=== PATIENT | female | born 1960 | race Caucasian/White ===

== ENCOUNTER → 2022-03-21 15:52 | Outpatient (CLI) | payer OTHER, SELFPAY ==
[2022-03-21 17:31] LABS: Basophils # 0.1 K/mm3 (0-0.2); Basophils % 2.2 % (0.1-2.0); Eosinophils # 0.2 K/mm3 (0.0-0.4); Eosinophils % 4.7 % (0.1-12.0); Hemoglobin 14.6 g/dL (12.2-16.2); Lymphocytes # 1.6 K/mm3 (0.7-4.5); Lymphocytes % 36.6 % (10-50); Mean Corpuscular HGB Conc 33.2 g/dL (31.8-35.4); Mean Corpuscular Hemoglobin 31.9 pg (27.0-31.2); Mean Corpuscular Volume 96.1 fl (81-99); Mean Platelet Volume 9.6 fl (7.4-10.4); Monocytes # 0.4 K/mm3 (0.1-1.0); Monocytes % 9.5 % (1.7-9.3); Platelet Count 273 K/mm3 (142-424); Red Blood Count 4.58 M/mm3 (4.20-5.40); Red Cell Distribution Width 13.8 % (11.5-17.5); White Blood Count 4.2 K/mm3 (4.8-10.8)
[2022-03-21 17:33] LABS: Alanine Aminotransferase 25 U/L (12-78); Albumin Level 4.2 g/dl (3.5-5.0); Albumin/Globulin Ratio 1.5 (1.1-1.8); Alkaline Phosphatase 92 U/L (38-126); Anion Gap 13.9 mEq/L (5-15); Aspartate Amino Transferase 29 U/L (14-36); Blood Urea Nitrogen 13 mg/dl (7-17); Calcium 9.4 mg/dl (8.4-10.2); Carbon Dioxide 32 mmol/L (22.0-30.0); Chloride 100 mmol/L (98-107); Chol/HDL Ratio 3.8 (1-3.5); Cholesterol 218 mg/dl (140-200); Estimated Glomerular Filt Rate 101 ml/min (>60); GFR (African American) 122 ML/MIN (>60); Globulin 2.8 g/dL (1.3-3.2); Glucose 114 mg/dl (74-100); HDL Cholesterol 58 mg/dl (40-60); Potassium 4.9 mmoL/L (3.5-5.1); Sodium 141 mmol/L (136-145); Triglycerides 125 mg/dl (30-150); VLDL Cholesterol 25 mg/dL (0-40)
[2022-03-21 17:43] LABS: Bilirubin,Total 0.1 mg/dl (0.2-1.3)
[2022-03-21 17:44] LABS: Direct LDL Cholesterol 125.75 mg/dL (100-129)
[2022-03-21 17:50] LABS: Free T4 (Free Thyroxine) 1.36 ng/dl (0.78-2.19)
[2022-03-21 17:51] LABS: 25-OH Vitamin D, Total 71.9 ng/mL (30-100)
[2022-03-21 18:04] LABS: Thyroid Stimulating Hormone 0.61 uIU/mL (0.465-4.68)
== END ==
PROVIDERS: PCP Emergency Medicine; Visit Provider Emergency Medicine
DX: J44.9 Chronic obstructive pulmonary disease, unspecified (principal); E55.9 Vitamin D deficiency, unspecified; R53.83 Other fatigue
CPT/HCPCS: 80053; 80061; 82306; 84439; 84443; 85025

== ENCOUNTER → 2022-04-06 14:26 | Outpatient (CLI) | payer OTHER, SELFPAY ==
--- NOTE | 2022-04-06 14:30 | CT_ITS ---
FINAL REPORT CLINICAL HISTORY: lung cancer screening former smoker, quit 3 years ago. 1-1/2 ppd x 40 years copd exposed to 2nd hand smoke FINDINGS: CT CHEST SCREENING CTDI vol (mGy): 2.90 DLP (mGy-cm): 99.51 Axial images were obtained from the lung apex to the mid abdomen by computed tomography. Low-dose protocol was utilized. FINDINGS: CHEST: There is no axillary adenopathy. There is no hilar or mediastinal adenopathy. The heart is proper size. There are moderate vascular calcifications. There is no pericardial or pleural effusion. Limited images of the upper abdomen demonstrate several low-attenuation masses in the liver, the largest in the left liver dome measuring 11 mm, nonspecific.. Lung window images demonstrate severe changes of emphysema. There is a calcified mass in the right upper lobe consistent with a large granuloma. There are multiple other calcified granulomas noted. There is a soft tissue opacity in the posterior left upper lobe measuring up to 28 mm. There is a nodule in the left lower lobe measuring 12 mm seen on image 25. There is a 3 mm nodule in the lateral left upper lobe seen on image 28. IMPRESSION: Posterior left upper lobe soft tissue opacity measuring up to 28 mm. Other nodules as detailed above. Lung RADS category 4B-S*. Recommend PET CT. S* - Liver masses as above. Recommend follow-up liver mass protocol CT or liver MRI. Reviewed, Interpreted and Dictated by Gerald Amador III, MD Transcribed by Chaaprrita Bernstein Authenticated and [facility]
== END ==
PROVIDERS: PCP Emergency Medicine; Visit Provider Emergency Medicine
DX: Z87.891 Personal history of nicotine dependence (principal); Z12.2 Encounter for screening for malignant neoplasm of respiratory organs
CPT/HCPCS: 71271

== ENCOUNTER → 2022-07-16 09:57 | Outpatient (CLI) | payer OTHER, SELFPAY ==
--- NOTE | 2022-07-16 12:05 | PC.NURSE ---
PFT and 6 Minute Walk Test completed without incident. Pt given albuterol 0.083% per protocol, pt tolerated tx well. During walk Pt placed on 2 LPM NC to complete test.
== END ==
PROVIDERS: PCP Emergency Medicine; Visit Provider Internal Medicine Pulmonary Disease
DX: R06.09 Other forms of dyspnea (principal)
CPT/HCPCS: 94060; 94618; 94726; 94729

== ENCOUNTER → 2023-02-07 13:32 | Outpatient (CLI) | payer MEDICARE, SELFPAY ==
--- NOTE | 2023-02-07 13:32 | CT_ITS ---
FINAL REPORT TECHNIQUE: Axial images were obtained from the lung apex to the mid abdomen by computed tomography. Coronal reformatted images were obtained. This study was performed with techniques to keep radiation doses as low as reasonably achievable, (ALARA). Individualized dose reduction techniques using automated exposure control or adjustment of mA and/or kV according to the patient''s size were employed. CLINICAL HISTORY: LUNG NODULE F/U COMPARISON: CT low-dose 04/06/2022 FINDINGS: There is no axillary adenopathy. There is no hilar or mediastinal mass or adenopathy. Heart size is normal. There are moderate coronary artery calcifications. There is no pericardial or pleural effusion. There is severe emphysema. There is a calcified mass in the right upper lobe which is stable. In addition, the soft tissue opacity posterior left upper lobe measuring up to approximately 40 mm is stable. Stable left lower lobe nodule measuring 12 mm. Medial right lower lobe opacities are new, favor inflammatory. Limited images of the upper abdomen demonstrate multiple hepatic masses which are stable. There are moderate vascular calcifications. IMPRESSION: Stable nodules and opacities from prior exam. New opacities right lower lobe are likely inflammatory. Could be further evaluated with chest CT in 3-6 months. Stable nonspecific liver masses. Reviewed, Interpreted and Dictated by Gerald Amador III, MD Transcribed by Chaparrita Bernstein Authenticated and [facility]
== END ==
PROVIDERS: PCP Emergency Medicine; Visit Provider Internal Medicine Pulmonary Disease
DX: R91.8 Other nonspecific abnormal finding of lung field (principal)
CPT/HCPCS: 71250

== ENCOUNTER → 2023-08-09 15:04 | Outpatient (CLI) | payer MEDICARE, SELFPAY ==
--- NOTE | 2023-08-09 15:04 | CT_ITS ---
FINAL REPORT TECHNIQUE: Axial images were obtained from the lung apex to the mid abdomen by computed tomography. Coronal reformatted images were obtained. This study was performed with techniques to keep radiation doses as low as reasonably achievable, (ALARA). Individualized dose reduction techniques using automated exposure control or adjustment of mA and/or kV according to the patient''s size were employed. CLINICAL HISTORY: Follow-up lung nodule/opacity COMPARISON: CT low-dose 02/07/2023 FINDINGS: There is no axillary adenopathy. There is no hilar or mediastinal adenopathy. Heart size is normal. There is no pericardial or pleural effusion. There is severe emphysema. There is a stable calcified right upper lobe mass. Left upper lobe soft tissue opacity measuring up to 40 mm is visually stable. There has been interval worsening of focal soft tissue opacity in the medial right midthorax now measuring approximally 32 x 17 mm, was 14 x 13 mm. There has been interval resolution of lateral right lower lobe nodular opacity. There is a new 13 mm medial right lower lobe nodular opacity. Left lower lobe nodule measures 11 mm, was 11 mm, seen on image 29. There is a new 3 mm nodule lateral to it. There is a new posterior left lower lobe nodular opacity measuring up to 10 mm. Limited images of the upper abdomen demonstrate multiple low-attenuation hepatic foci which are stable. Gallstones are noted. IMPRESSION: Significant enlargement of soft tissue opacity posterior medial right midthorax, neoplastic or inflammatory. Recommend PET-CT and possible CT-guided biopsy. New bilateral lower lobe nodular opacities of uncertain etiology, inflammatory or neoplastic. Stable other left lung opacities. Reviewed, Interpreted and Dictated by Gerald Amador III, MD Transcribed by Chaparrita Bernstein Authenticated and [facility]
== END ==
PROVIDERS: PCP Emergency Medicine; Visit Provider Internal Medicine Pulmonary Disease
DX: R91.8 Other nonspecific abnormal finding of lung field (principal)
CPT/HCPCS: 71250

== ENCOUNTER → 2023-08-15 15:33 | Outpatient (CLI) | payer MEDICARE, SELFPAY ==
[2023-08-23 00:04] LABS: Aspergillus flavus Negative (Neg:<1:1); Aspergillus fumigatus Negative (Neg:<1:1); Aspergillus niger Negative (Neg:<1:1); Blastomyces Antibody Negative (Neg:<1:1); Histoplasma Antibody Quant Negative (Neg:<1:1)
[2023-08-26 16:56] LABS: Alpha-1-Antitrypsin 102 mg/dL (101-187); Phenotype (PI) MZ (.)
== END ==
PROVIDERS: PCP Emergency Medicine; Visit Provider Internal Medicine Pulmonary Disease
DX: J84.10 Pulmonary fibrosis, unspecified (principal); R91.1 Solitary pulmonary nodule; J44.9 Chronic obstructive pulmonary disease, unspecified
CPT/HCPCS: 36415; 82103; 82104; 86606; 86612; 86698

== ENCOUNTER → 2023-09-26 06:52 | Outpatient (CLI) | payer MEDICARE, SELFPAY ==
[2023-09-26 19:01] LABS: Alanine Aminotransferase 23 U/L (12-78); Albumin Level 4.4 g/dl (3.5-5.0); Albumin/Globulin Ratio 1.4 (1.1-1.8); Alkaline Phosphatase 101 U/L (38-126); Anion Gap 14.3 mEq/L (5-15); Aspartate Amino Transferase 30 U/L (14-36); Bilirubin,Total 0.5 mg/dl (0.2-1.3); Blood Urea Nitrogen 14 mg/dl (7-17); Carbon Dioxide 26 mmol/L (22.0-30.0); Chloride 101 mmol/L (98-107); Chol/HDL Ratio 4.2 (1-3.5); Cholesterol 210 mg/dl (140-200); Estimated Glomerular Filt Rate 72 ml/min (>60); GFR (African American) 87 ML/MIN (>60); Globulin 3.2 g/dL (1.3-3.2); Glucose 89 mg/dl (74-100); HDL Cholesterol 50 mg/dl (40-60); Potassium 4.3 mmoL/L (3.5-5.1); Sodium 137 mmol/L (136-145); Total Protein,Serum 7.6 g/dl (6.3-8.2); Triglycerides 98 mg/dl (30-150); VLDL Cholesterol 20 mg/dL (0-40)
[2023-09-26 19:05] LABS: Basophils % 0.5 % (0.1-2.0); Eosinophils # 0.2 K/mm3 (0.0-0.4); Eosinophils % 3.6 % (0.1-12.0); Hematocrit 43.5 % (37.0-47.0); Hemoglobin 14.2 g/dL (12.2-16.2); Lymphocytes # 1.4 K/mm3 (0.7-4.5); Lymphocytes % 28.6 % (10-50); Mean Corpuscular HGB Conc 32.6 g/dL (31.8-35.4); Mean Corpuscular Volume 95.1 fl (81-99); Mean Platelet Volume 9.3 fl (7.4-10.4); Monocytes # 0.4 K/mm3 (0.1-1.0); Neutrophils # 2.9 K/mm3 (1.8-7.8); Neutrophils % 59.4 % (37.0-80.0); Platelet Count 291 K/mm3 (142-424); Red Blood Count 4.58 M/mm3 (4.20-5.40); Red Cell Distribution Width 12.8 % (11.5-17.5); White Blood Count 4.9 K/mm3 (4.8-10.8)
[2023-09-26 19:12] LABS: Direct LDL Cholesterol 131.49 mg/dL (100-129)
[2023-09-26 19:31] LABS: Thyroid Stimulating Hormone 0.51 uIU/mL (0.465-4.68)
== END ==
PROVIDERS: PCP Physician Assistant; Visit Provider Physician Assistant
DX: J44.9 Chronic obstructive pulmonary disease, unspecified (principal); E66.3 Overweight; R06.09 Other forms of dyspnea; J43.2 Centrilobular emphysema; Z68.30 Body mass index [BMI] 30.0-30.9, adult
CPT/HCPCS: 80053; 80061; 84443; 85025

== ENCOUNTER 2023-11-04 15:55 | Outpatient (CLI) | payer MEDICARE, SELFPAY ==
--- NOTE | 2023-11-04 15:55 | MM_ITS ---
PROCEDURE INFORMATION: Exam: MG Bilateral Screening 3D Mammography Exam date and time: 11/04/2023 3:54 PM Age: 63 years old Clinical indication: Screening examination. Her sister had breast cancer at age 46. TECHNIQUE: Imaging protocol: Bilateral Screening tomosynthesis and 2D mammography including computer-aided detection (CAD) when performed. The technologist's notes document that best images possible were obtained to the patient's abilities. COMPARISON: No comparison provided.If prior mammograms are provided, I am happy to add an addendum. FINDINGS: MAMMOGRAPHY: Breast composition: There are scattered areas of fibroglandular density. Mass: No suspicious mass. Architectural distortion: None. Calcifications: Grouping of calcifications in the left upper outer quadrant, posterior 3rd. Asymmetric density: None. Skin thickening: None. Axillary adenopathy: None. IMPRESSION: Comparison to prior mammogram be most helpful. This is not provided within 2 weeks, patient will be recalled for left diagnostic mammography with magnification views in CC and true lateral for further evaluation of left breast calcifications. ASSESSMENT: BI-RADS Category 0: Incomplete- Need Additional Imaging Evaluation and/or Prior Mammograms for Comparison
== END 2023-11-04 23:59 ==
LOC: RAD 15:55
PROVIDERS: PCP Physician Assistant; Visit Provider Physician Assistant
DX: Z12.31 Encounter for screening mammogram for malignant neoplasm of breast (principal)
CPT/HCPCS: 77063; 77067

== ENCOUNTER 2023-11-14 13:48 | Outpatient (CLI) | payer MEDICARE, SELFPAY ==
--- NOTE | 2023-11-14 13:48 | MM_ITS ---
PROCEDURE INFORMATION: Exam: MG Left Diagnostic Breast Tomosynthesis Exam date and time: 11/14/2023 1:57 PM Age: 63 years old Clinical indication: Patient recalled on the basis of a screening mammogram for further evaluation; Left breast; calcifications TECHNIQUE: Imaging protocol: Left Diagnostic tomosynthesis and 2D mammography including computer-aided detection (CAD) when performed. Unilateral or bilateral exam. COMPARISON: 1. MG MM DIG SCREENING MAMM BI W/CAD 11/04/2023 3:54 PM [address] PT PET CT Skull Base to Midthigh 05/03/2022 11:37 AM FINDINGS: MAMMOGRAPHY: Digital diagnostic magnification views of the left upper outer quadrant demonstrate benign dystrophic calcifications. IMPRESSION: No mammographic evidence of malignancy. Benign dystrophic calcifications in the left breast.Annual bilateral mammographic screening is recommended unless otherwise clinically indicated. ASSESSMENT: BI-RADS Category 2: Benign
== END 2023-11-14 23:59 ==
LOC: RAD 13:48
PROVIDERS: PCP Physician Assistant; Visit Provider Physician Assistant
DX: R92.8 Other abnormal and inconclusive findings on diagnostic imaging of breast (principal)
CPT/HCPCS: 77061; 77065; G0279

== ENCOUNTER 2023-12-03 11:25 | Day surgery (SDC) | payer MEDICARE, SELFPAY ==
[2023-12-02 10:06] VITALS: BMI 29.8
[2023-12-03] MEDS: LACTATED RINGERS 1000ML 1,000 ML 100 ML IV (11:43)
[2023-12-03 11:46] VITALS: BP 182/97; PULSE 115; RESP 20; TEMP 36.3; O2SAT 91
--- NOTE | 2023-12-03 11:58 | P.PNANES_ITS ---
[facility] Disclaimer: The information contained in this section may have been updated after the patient was seen, as this information can be updated by other users. Medical History COPD (chronic obstructive pulmonary disease) COPD mixed type Dyspnea on exertion Hilar lymphadenopathy Lung nodule Mediastinal lymphadenopathy Migraine O2 dependent Pulmonary emphysema Surgical History History of lung biopsy No significant past surgical history Family History Other Cancer Coronary artery disease Diabetes Heart attack Hypertension Stroke Social History Smoking Status: Former smoker alcohol intake: never substance use type: denies use current occupational status: employed Travel in the last 8 weeks: None [facility] Anesthesia Checklist Patient Identification Patient Identification: Arm Band and Verbal (Name & ) Structural Data Admitted From: Home Planned Operative Procedure/s: Colonoscopy Consent for Planned Operative Procedure(s) Verified: Yes NPO Status Verified Time NPO: 00:00 Additional verifications Anesthesia Reactions: No Airway Assessment Mallampati Score:: Class III C-Spine Mobility Assessed: Yes TMJ Mobility Assessed: Yes Dentition: Edentulous Neurological Assessment Level of Consciousness: Awake Hx Seizures: No Numbness or tingling in extremities: No Anesthesia Plan Anesthesia Risk discussed: Yes Anesthesia Plan: Verified ASA Class: III Anesthesia Type: MAC
[2023-12-03 12:07] VITALS: O2SAT 91
[2023-12-03 12:50] VITALS: BP 111/56; PULSE 88; RESP 18; TEMP 36.4; O2SAT 99
--- NOTE | 2023-12-03 12:51 | HMH.SCOPE ---
Procedure: Date: 12/03/23 Patient Date of :: 1960 Procedure Performed:: Colonoscopy with polypectomy Indications:: Positive Cologuard Performing Provider:: Bhavin Castano MD Referring Provider:: . Sedation:: Monitored anesthesia care Procedure:: After informed consent was obtained the patient was taken to the endoscopy suite. Sedation ensued after the patient was transferred to the left lateral decubitus position. Pulse, blood pressure, and oxygen saturation were monitored throughout the procedure. Digital rectal exam revealed no significant abnormality. The colonoscope was placed in position. The entire colon was evaluated. The colonoscope was carefully removed and the patient was transferred to recovery in stable condition. Please see findings and specimens below for detail. Findings:: Bowel preparation moderate Profound spasticity/lack of relaxation Adjacent right colon polyps (see specimens) Tattoo placed at adjacent right colon polyp site secondary to difficulty in visualization (spasticity/lack of relaxation) Specimens:: Adjacent right colon polyps (cold snare, cold biopsy forceps, and tattoo) Recommendations:: Timing of repeat colonoscopy is pending pathology will likely be around 6-12 months secondary to profound spasticity/lack of relaxation, positive Cologuard, and need for short-term repeat evaluation in/around tattoo site. Consider barium enema in near future secondary to positive Cologuard without mass lesion or large/complex polyp Complications:: No immediate Estimated blood obtained (mL): 1 Colonoscopy Component Colonoscopy Component Was a colonoscopy performed during today's procedure?: Yes Recommended follow up colonoscopy of at least 10 years?: No If no, follow up colonoscopy recommended in ___ years?: (See above) Reason for not recommending >/= 10 yr follow-up interval?: (See above)
[2023-12-03 13:00] VITALS: BP 156/76; PULSE 85; RESP 18; O2SAT 99
[2023-12-03 13:10] VITALS: BP 131/65; PULSE 87; RESP 18; O2SAT 98
== END 2023-12-03 13:10 | disposition home or self-care (01) ==
PROVIDERS: PCP Physician Assistant; Visit Provider Surgery
PROC: 0DJD8ZZ Inspection of Lower Intestinal Tract, Via Natural or Artificial Opening Endoscopic (ICD-10-PCS; CPT 45380; principal; 2023-12-03 12:30)
DX: R19.5 Other fecal abnormalities (principal); D12.2 Benign neoplasm of ascending colon
CPT/HCPCS: 45380; 88305; J1610; J2704

== ENCOUNTER 2023-12-23 06:42 | Outpatient (CLI) | payer MEDICARE, SELFPAY ==
--- NOTE | 2023-12-23 06:46 | CT_ITS ---
FINAL REPORT TECHNIQUE: Thin section axial images were obtained from the lung apices through the upper abdomen without contrast. This study was performed with techniques to keep radiation doses as low as reasonably achievable (ALARA). Individualized dose reduction techniques using automated exposure control or adjustment of mA and/or kV according to the patient's size were employed. CLINICAL HISTORY: lung nodule COMPARISON: 08/09/2023 FINDINGS: There is no mediastinal, right hilar, or axillary lymphadenopathy. There is likely new posterior left hilar lymphadenopathy. No pleural or pericardial effusion. There is emphysema and evidence of prior granulomatous disease. There is a partially calcified, irregular opacity in the right upper lobe and irregular left upper lobe airspace disease which is unchanged. Nodular opacity in the medial right lower lobe has improved now measuring 16 mm, previously measured 26 mm. However, there is new cavitary airspace disease in the superior segment of the left lower lobe most consistent with pneumonia. Limited, unenhanced evaluation of the upper abdomen demonstrates small hypodense liver lesions which are likely cysts. There are gallstones in the gallbladder. Left adrenal nodule is unchanged. There is no acute osseous abnormality. IMPRESSION: Improved medial right lower lobe rounded opacity. New cavitary left lower lobe pneumonia. Recommend follow-up CT to ensure resolution. Reviewed, Interpreted and Dictated by Martha Kearns MD Transcribed by Samantha Dow Authenticated and [facility]
== END 2023-12-23 23:59 ==
LOC: RAD 06:44
PROVIDERS: PCP Physician Assistant; Visit Provider Internal Medicine Pulmonary Disease
DX: R91.8 Other nonspecific abnormal finding of lung field (principal)
CPT/HCPCS: 71250

== ENCOUNTER 2024-01-27 16:13 | Outpatient (CLI) | payer MEDICARE, SELFPAY ==
--- NOTE | 2024-01-27 16:23 | XR_ITS ---
PROCEDURE INFORMATION: Exam: XR Chest Exam date and time: 01/27/2024 4:29 PM Age: 63 years old Clinical indication: Other: Lll pnm; Additional info: Lll pnm. Copd, SOA, former smoker x 40 yrs TECHNIQUE: Imaging protocol: Radiologic exam of the chest. Views: 2 views. COMPARISON: CT CHEST WO CON 12/23/2023 6:44 AM FINDINGS: Lungs: Extensive chronic parenchymal changes with areas of scarring and calcification, stable from prior. There is mild coarsening of the bronchovascular markings with hyperinflation suggesting underlying obstructive airways disease. Improved aeration of the left lower lobe. Pleural spaces: No large effusion or pneumothorax. Heart/Mediastinum: Stable cardiac and mediastinal contours. Bones/joints: No evidence of acute osseous abnormalities within the visualized portions of the thoracic spine and ribs. Osseous structures appear appropriate for patient age. There are degenerative changes of the thoracic spine. IMPRESSION: Extensive chronic changes are stable. Improved aeration of the left lower lobe.
[2024-01-28 08:58] LABS: Alpha-1-Antitrypsin 99 mg/dL (101-187)
[2024-02-01 10:41] LABS: Fungitell(Beta D-Glucan) Serum SCANNED IMAGE
== END 2024-01-27 23:59 ==
LOC: LAB 16:14
PROVIDERS: PCP Physician Assistant; Visit Provider Internal Medicine Pulmonary Disease
DX: B44.9 Aspergillosis, unspecified (principal); J44.9 Chronic obstructive pulmonary disease, unspecified; R06.02 Shortness of breath
CPT/HCPCS: 36415; 71046; 82103; 87449

== ENCOUNTER 2024-01-27 22:00 | Outpatient (CLI) | payer MEDICARE, SELFPAY | END 2024-01-27 23:59 | LOC: LAB.DROPOF 01-28 10:01 | PROVIDERS: PCP Physician Assistant; Visit Provider Internal Medicine Pulmonary Disease | DX: R06.09 Other forms of dyspnea (principal); R05.9 Cough, unspecified; R09.89 Other specified symptoms and signs involving the circulatory and respiratory systems | CPT/HCPCS: 36415; 71046; 82103; 87070; 87205; 87449 ==

== ENCOUNTER 2024-01-28 09:55 | Outpatient (CLI) | payer MEDICARE, SELFPAY | END 2024-01-28 23:59 | LOC: LAB.DROPOF 09:56 | PROVIDERS: PCP Physician Assistant; Visit Provider Internal Medicine Pulmonary Disease | DX: J18.9 Pneumonia, unspecified organism (principal); B35.9 Dermatophytosis, unspecified; R05.9 Cough, unspecified; B44.9 Aspergillosis, unspecified | CPT/HCPCS: 87220 ==

== ENCOUNTER 2024-03-11 07:46 | Outpatient (CLI) | payer MEDICARE, SELFPAY ==
--- NOTE | 2024-03-11 07:46 | FL_ITS ---
FINAL REPORT CLINICAL HISTORY: .POSITIVE COLOGUARD 2:18 FLUORO TIME 4624.31 DAP FINDINGS: BARIUM ENEMA HISTORY: Incomplete colonoscopy. Positive Cologuard test. PROCEDURE: Single-contrast barium was introduced by gravity drip. Spot and overhead films were obtained. Number of images: 22 Fluoro time: 2 minutes 18 seconds DAP: 4624.31 uGym2. FINDINGS: Quality Control Coordinator film is unremarkable. Retained stool limits mucosal detail. No constricting or obstructing lesions are identified to the level of the cecum. The colon is markedly redundant. IMPRESSION: No constricting or obstructing lesions to the level the cecum. Films reviewed , interpreted and dictated by Dr. Amador. Transcribed by Francisco Fisher PA-C. Reviewed, Interpreted and Dictated by Gerald Amador III, MD Transcribed by MARVIN Vazquez Authenticated and [facility]
[2024-03-11] MEDS: BARIUM SULFATE(E-Z-AC);750ML BOTTLE 1500 ML PO (08:28)
== END 2024-03-11 23:59 | disposition home or self-care (01) ==
LOC: RAD 07:46
PROVIDERS: PCP Physician Assistant; Visit Provider Surgery
DX: R19.5 Other fecal abnormalities (principal)
CPT/HCPCS: 74270

== ENCOUNTER 2024-03-26 14:23 | Outpatient (CLI) | payer MEDICARE, SELFPAY ==
--- NOTE | 2024-03-26 14:29 | CT_ITS ---
FINAL REPORT TECHNIQUE: Axial images were obtained through the chest without contrast. CLINICAL HISTORY: 3 month follow-up COMPARISON: 12/23/2023 FINDINGS: There is no significant mediastinal or hilar adenopathy. The heart size is normal. There are moderate vascular calcifications of the aortic arch. There is a densely calcified focus in the right upper lobe measuring 2.9 cm in greatest dimension. This is stable compared to the prior exam. There are advanced changes of centrilobular emphysema. Scarring in the posterior aspect of the left upper lobe seen on image 24 of series 2 is stable compared to the prior exam. An ovoid nodular focus in the medial right lower lobe measures 13 mm and appears similar to the previous exam. This is best seen on image 31 of series 2. The cavitary focus noted previously in the left lower lobe is no longer seen. However, there is an ovoid solid mass at this location measuring 3.5 x 2.5 cm as seen on image 35 of series 2. IMPRESSION: Stable nodule in the medial right lower lobe. Cavitary mass in the left lower lobe has decreased in size and is now completely solid measuring 3.5 x 2.5 cm. This may be postinflammatory. Either short interval follow-up chest CT or PET/CT is recommended. Reviewed, Interpreted and Dictated by Rakesh Pike MD Transcribed by Annette Li Authenticated and [facility]
== END 2024-03-26 23:59 | disposition home or self-care (01) ==
LOC: RAD 14:26
PROVIDERS: PCP Physician Assistant; Visit Provider Internal Medicine Pulmonary Disease
DX: R91.8 Other nonspecific abnormal finding of lung field (principal)
CPT/HCPCS: 71250

== ENCOUNTER 2024-06-26 10:55 | Outpatient (CLI) | payer MEDICARE, SELFPAY ==
--- NOTE | 2024-06-26 10:56 | CT_ITS ---
FINAL REPORT CLINICAL HISTORY: 3-month follow-up lung nodule FINDINGS: CT CHEST WITHOUT CONTRAST TECHNIQUE: Axial images through the chest were performed by computed tomography without contrast. This study was performed with techniques to keep radiation doses as low as reasonably achievable, (ALARA). Individualized dose reduction techniques using automated exposure control or adjustment of mA and/or kV according to the patient's size were employed. FINDINGS: There is no axillary adenopathy. There is no hilar or mediastinal adenopathy. There is dense vascular calcification of the aortic arch. The heart size is normal. There is no pericardial or pleural effusion. There are advanced changes of centrilobular emphysema. A calcified spiculated mass in the medial right upper lobe is stable. Linear scarring in the posterior left upper lobe is stable. A density in the posterior left lower lobe measures 3.2 x 2.0 cm which is slightly smaller than previous probably related to slowly resolving postinflammatory focus. Limited images of the upper abdomen demonstrate calcified granulomas in the liver and spleen. There are gallstones in the gallbladder. IMPRESSION: No acute process. Reviewed, Interpreted and Dictated by Rakesh Pike MD Transcribed by Annette Li Authenticated and . [facility]
== END 2024-06-26 23:59 | disposition home or self-care (01) ==
LOC: RAD 10:56
PROVIDERS: PCP Physician Assistant; Visit Provider Internal Medicine Pulmonary Disease
DX: R91.8 Other nonspecific abnormal finding of lung field (principal)
CPT/HCPCS: 71250

== ENCOUNTER 2024-09-28 14:44 | Outpatient (CLI) | payer MEDICARE, SELFPAY ==
--- NOTE | 2024-09-28 14:45 | CT_ITS ---
FINAL REPORT TECHNIQUE: Axial CT images were performed from the lung apices through the upper abdomen. Coronal and sagittal reformats were submitted. This study was performed with techniques to keep radiation doses as low as reasonably achievable (ALARA). Individualized dose reduction techniques using automated exposure control or adjustment of mA and/or kV according to the patient's size were employed. CLINICAL HISTORY: 3 mth F/U COMPARISON: 06/26/2024 FINDINGS: There is no axillary adenopathy. Small mediastinal nodes are again noted. Heart size is normal. Moderate to severe coronary artery calcifications are present. There is no pericardial or pleural effusion. Severe changes of emphysema are noted, as well as moderate scar. There is a medial right upper lobe nodule measuring 25 mm in size, partially calcified, stable. There is a partially calcified posterior left upper lobe soft tissue opacity, also stable, likely scar. There is a left lower lobe mass, which measures 38 x 14 mm in size, was previously 38 x 20 mm in size, and visually decreased in size compared to the prior exam. There are several small adjacent nodules which are stable. There are multiple calcified granulomas present. There is no evidence of new mass or nodule. In the upper abdomen, there are multiple small presumed hepatic cysts, visually stable. IMPRESSION: Multiple nodules as described above, some partially calcified, either stable or smaller in size when compared to the prior exam of May 2024. No new mass or nodule is identified. Moderate to severe coronary artery calcifications. Severe changes of emphysema and moderate scarring. Reviewed, Interpreted and Dictated by Gerald Amador III, MD Transcribed by Sabi Davis Authenticated and [facility]
== END 2024-09-28 23:59 | disposition home or self-care (01) ==
LOC: RAD 14:45
PROVIDERS: PCP Physician Assistant; Visit Provider Internal Medicine Pulmonary Disease
DX: R91.8 Other nonspecific abnormal finding of lung field (principal)
CPT/HCPCS: 71250

== ENCOUNTER 2024-10-12 14:00 | Outpatient (CLI) | payer MEDICARE, SELFPAY ==
[2024-10-12 18:39] LABS: Basophils % 0.8 % (0.1-2.0); Eosinophils # 0.1 K/mm3 (0.0-0.4); Eosinophils % 3.1 % (0.1-12.0); Hematocrit 44.4 % (37.0-47.0); Hemoglobin 14.6 g/dL (12.2-16.2); Lymphocytes # 0.9 K/mm3 (0.7-4.5); Lymphocytes % 23.4 % (10-50); Mean Corpuscular HGB Conc 32.9 g/dL (31.8-35.4); Mean Corpuscular Hemoglobin 31.1 pg (27.0-31.2); Mean Corpuscular Volume 94.6 fl (81-99); Mean Platelet Volume 8.5 fl (7.4-10.4); Monocytes # 0.3 K/mm3 (0.1-1.0); Monocytes % 7.3 % (1.7-9.3); Neutrophils # 2.6 K/mm3 (1.8-7.8); Neutrophils % 65.4 % (37.0-80.0); Platelet Count 250 K/mm3 (142-424); Red Blood Count 4.69 M/mm3 (4.20-5.40); Red Cell Distribution Width 13.2 % (11.5-17.5)
[2024-10-12 18:59] LABS: Creatinine,Urine Random 43 mg/dL (Not Estab.)
[2024-10-12 19:02] LABS: Microalbumin < 6.000 mg/L (0-16.7)
[2024-10-12 19:05] LABS: Chloride 103 mmol/L (98-107)
[2024-10-12 19:06] LABS: Albumin Level 4.4 g/dl (3.5-5.0); Potassium 4.4 mmoL/L (3.5-5.1); Sodium 132 mmol/L (136-145)
[2024-10-12 19:08] LABS: Alanine Aminotransferase 26 U/L (12-78); Anion Gap 11.4 mEq/L (5-15); Aspartate Amino Transferase 37 U/L (14-36); Blood Urea Nitrogen 13 mg/dl (7-17); Carbon Dioxide 22 mmol/L (22.0-30.0); Estimated Glomerular Filt Rate 72 ml/min (>60); GFR (African American) 87 ML/MIN (>60)
[2024-10-12 19:09] LABS: Albumin/Globulin Ratio 1.6 (1.1-1.8); Alkaline Phosphatase 80 U/L (38-126); Bilirubin,Total 0.6 mg/dl (0.2-1.3); Calcium 9.1 mg/dl (8.4-10.2); Globulin 2.8 g/dL (1.3-3.2); Glucose 89 mg/dl (74-100); Total Protein,Serum 7.2 g/dl (6.3-8.2)
[2024-10-12 19:36] LABS: Thyroid Stimulating Hormone 0.75 uIU/mL (0.465-4.68)
[2024-10-12 20:19] LABS: Hemoglobin A1C 5.4 % (4.0-6.0)
== END 2024-10-12 23:59 | disposition home or self-care (01) ==
LOC: LAB.DROPOF 10-13 12:53
PROVIDERS: PCP Internal Medicine; Visit Provider Internal Medicine
DX: B02.23 Postherpetic polyneuropathy (principal); R73.03 Prediabetes; R53.83 Other fatigue; D12.6 Benign neoplasm of colon, unspecified; J44.9 Chronic obstructive pulmonary disease, unspecified; E55.9 Vitamin D deficiency, unspecified; E78.5 Hyperlipidemia, unspecified; Z13.1 Encounter for screening for diabetes mellitus
CPT/HCPCS: 80053; 82043; 82570; 83036; 84443; 85025

== ENCOUNTER 2025-02-03 14:47 | Outpatient (CLI) | payer MEDICARE, SELFPAY ==
--- NOTE | 2025-02-03 15:00 | MM_ITS ---
PROCEDURE INFORMATION: Exam: MG Bilateral Screening 3D Mammography Exam date and time: 02/03/2025 3:00 PM Age: 64 years old Clinical indication: Screening examination TECHNIQUE: Imaging protocol: Bilateral Screening tomosynthesis and 2D mammography including computer-aided detection (CAD) when performed. COMPARISON: 1. MG MM DIG MAMM DX UNILAT LT CAD 11/14/2023 1:57 PM 2. MG MM DIG SCREENING MAMM BI W/CAD 11/04/2023 3:54 PM FINDINGS: MAMMOGRAPHY: Breast composition: There are scattered areas of fibroglandular density. Mass: No suspicious masses. Architectural distortion: None. Calcifications: Unchanged left upper-outer quadrant calcifications. Asymmetric density: None. Skin thickening: None. Axillary adenopathy: None. IMPRESSION: No mammographic evidence of malignancy. Annual screening is recommended unless otherwise clinically indicated. ASSESSMENT: BI-RADS Category 2: Benign.
== END 2025-02-03 23:59 | disposition home or self-care (01) ==
LOC: RAD 14:48
PROVIDERS: PCP Family Medicine; Visit Provider Family Medicine
DX: Z12.31 Encounter for screening mammogram for malignant neoplasm of breast (principal)
CPT/HCPCS: 77063; 77067

== ENCOUNTER 2025-04-02 09:55 | Outpatient (CLI) | payer MEDICARE, SELFPAY ==
--- OUTSIDE RECORDS SUMMARY | 2025-04-02 09:59 | XMS_ITS | Encounter Summary ---
Author Organization Healthcare Address [address] [place] [address] Care Team Providers Care Product Development Manager Name Role Phone Migue Montenegro MD Primary Care Provider + [phone] Daryl Kee MD Unavailable [phone] Randy Frederick MD Unavailable [phone] Encounter Details Date Type Department Care Team (Late st Contact Info) Description 03/26/2024 Orders Only External Location [address] [place] [address] Provider, External Social History Tobacco Use Types Packs/Day Years Used Date Smoking Tobacco: Former Cigarettes 1 42 1 977 - 2019 Smokeless Tobacco: Never Alcohol Use Standard Drinks/Week Comments Not Currently 0 (1 standard drink = 0.6 oz pur e alcohol) PHQ-2 Answer Date Recorded Patient Health Questionnaire-2 Score 0 06/14/2022 Comments No Sex and Gender Information Value Date Recorded Sex Assigned at Not on file Legal Sex Female 8:33 PM EDT Gender Identity Not on file Sexual Orientation Not on file documented as of this encounter Plan of Treatment Not on file documented as of this encounter Procedures Procedure Name Priority Date/Time Associated Diagnosis Comments CT OUTSIDE IMAGES 03/26/2024 2:31 PM EDT documented in this encounter Results * CT OUTSIDE IMAGES (03/26/2024 2:31 PM EDT) Anatomical Region Laterality Modality Computed Tomogra phy 03/26/2024 2:31 PM EDT us External Provider IMG CT PROCEDURES Final Result documented in this encounter Visit Diagnoses Not on filedocumented in this encounter Additional Health Concerns Assessment Noted Time A fall risk assessment has been complete d for the patient 12/19/2023 11:47 AM EST A Body Mass Index follow-up plan has been documented for the patient 12/19/2023 1:53 PM EST documented as of this encounter Care Teams Product Development Manager Relationship Specialty Start Date End Date Migue Montenegro MD [address] [place] [address] PCP - General 05/28/22 Daryl Kee MD [address] [place] [address] Consulting Physician Pulmonary Disease 06/14/22 Randy Frederick MD [address] [place] [address] Referring Physician 06/25/22 documented as of this encounter
--- OUTSIDE RECORDS SUMMARY | 2025-04-02 09:59 | XMS_ITS | Encounter Summary ---
Author Organization [facility] Address [address] [place] [address] Care Team Providers Care Information Technology Data Analyst Name Role Phone Migue Montenegro MD Primary Care Provider + [phone] Daryl Kee MD Unavailable [phone] Randy Frederick MD Unavailable [phone] Encounter Details Date Type Department Care Team (Late st Contact Info) Description 02/07/2023 Orders Only External Location [address] [place] [address] Provider, External Social History Tobacco Use Types Packs/Day Years Used Date Smoking Tobacco: Former Cigarettes 1 42 1 97 - 2019 Smokeless Tobacco: Never Alcohol Use [...] Date/Time Associated Diagnosis Comments CT OUTSIDE IMAGES 02/07/2023 1:40 PM EDT documented in this encounter Results * CT OUTSIDE IMAGES (02/07/2023 1:40 PM EDT) Anatomical Region Laterality Modality Computed Tomogra phy 02/07/2023 1:40 PM EDT us External Provider IMG CT PROCEDURES Final Result documented in this encounter Visit Diagnoses Not on filedocumented in this encounter Additional Health Concerns Assessment Noted Time A fall risk assessment has been complete d for the patient 06/14/2022 1:35 PM EDT documented as of this encounter Care Teams Information Technology Data Analyst Relationship Specialty Start Date End Date Migue Montenegro MD [address] [place], [place] [id number] PCP - General 05/28/22 Daryl Kee MD [address] [place] [address] Consulting Physician Pulmonary Disease 06/14/22 Randy Frederick MD [address] [facility] [address] [place] [address] Referring Physician 06/25/22 documented as of this encounter
--- OUTSIDE RECORDS SUMMARY | 2025-04-02 09:59 | XMS_ITS | Clinical Summary ---
Author Organization [facility] Address [address] [place] [address] Care Team Providers Care Director Compliance Name Role Phone Migue Montenegro MD Primary Care Provider + [phone] Daryl Kee MD Unavailable [phone] Randy Frederick MD Unavailable [phone] Allergies No known active allergies Medications fish oil ([place]-3) 500 MG capsule Take 600 mg by mouth 1 (one) time each day. Active cyanocobalamin (Vitamin B-12) 500 MCG tablet Take 1 tablet (500 mcg) by mouth 1 (one) time each day. Active loratadine (Claritin) 10 MG tablet Take 10 mg by mouth 1 (one) time each day. Active albuterol 108 (90 Base) MCG/ACT inhaler Inhale 2 puffs every 6 (six) hours if needed for wheezing. 18 g 2 2 Active fluticasone (Flovent HFA) 110 MCG/ACT inhaler Inhale 1 puff 2 (two) times a day. Rinse mouth with water after use to reduce aftertaste and incidence of candidiasis. Do not swallow. 12 g 2 2 Active VITAMIN D PO Take by mouth 1 (one) time each day. Active omeprazole (PriLOSEC) [address] capsule Take 1 capsule (40 mg) by mouth 1 (one) time each day. Do not crush or chew. Active Trelegy Ellipta 100-62.5-25 MCG/ACT aerosol powder 4 Active ipratropium-alb uterol (Duo-Neb) 0.5-2.5 mg/3 mL nebulizer solution 3 ML INHALED EVERY 4-6 HOURS NEEDED FOR SHORTNESS OF BREATH OR WHEEZING FOR 90 DAYS 3 Active Magnesium 250 MG tablet Take by mouth. Activ e Active Problems Problem Noted Date Diagnosed Date Lung nodule 06/14/2022 Family History Medical History Relation Name Comments Cancer Father Cancer Other Diabetes Other Heartburn Other Hypercholesterolemia Other Hypertension Other Stroke Other Thyroid disease Other Breast cancer Sister Anesthesia problems Neg Hx Malig Hyperthermia Neg Hx Relation Name Status Comments Father Other Sister Social History Tobacco Use Types Packs/Day Years Used Date Smoking Tobacco: Former Cigarettes 1 42 1 977 - 2018 Smokeless Tobacco: Never Tobacco Cessation:Counseling Given: No Alcohol Use Standard Drinks/Week Comments Not Currently 0 (1 standard drink = 0.6 oz pur e alcohol) PHQ-2 Answer Date Recorded Patient Health Questionnaire-2 Score 0 06/14/2022 Comments No Sex and Gender Information Value Date Recorded Sex Assigned at Not on file Legal Sex Female 8:33 PM EDT Gender Identity Not on file Sexual Orientation Not on file Last Filed Vital Signs Vital Sign Reading Time Taken Comments Blood Pressure 125/82 07/23/2024 2:21 PM EDT Pulse 96 07/23/2024 2:21 PM EDT Temperature 36.7 C (98.1 F) 12/19/2023 11:50 AM EST Respiratory Rate 18 07/23/2024 2:21 PM EDT Oxygen Saturation 95% 07/23/2024 2:21 PM EDT Inhaled Oxygen Concentration - - Weight 82.3 kg (181 lb 7 oz) 07/23/2024 2:21 PM EDT Height 162.6 cm (5' 4.02 ) 07/23/2024 2:21 PM ED T Body Mass Index 31.13 07/23/2024 2:21 PM EDT Plan of Treatment Health Maintenance Due Date Last Done Comments [facility]-Bone Density Scan 1958 [facility]-Hepatitis C Screening 1960 [facility]-Medicare Annual Wellness (AWV) 1960 [facility]-Infant/Child/Adol SDOH Screenings 1960 [facility]- SDOH Screenings 02/10/1976 [facility]-Adult SDOH Screenings 02/10/1976 [facility]-DTaP,Tdap,and Td Vaccine s (1 - Tdap) 1977 CT Colonography 2003 Colonoscopy 2003 FIT-DNA 2003 FIT 2003 FOBT 2003 Sigmoidoscopy 2003 [facility]-Colorectal Cancer Screening 2003 [facility]-Breast Cancer Screening 02/10/2008 [facility]-Zoster Vaccines (1 of 2) 02/10/2008 [facility]-Pneumococcal Vaccine: 50 + Years (2 of 2 - PCV) 07/27/2022 07/27/2021 [facility]-Depression Screening 06/14/2023 06/14/2022 [facility]-Lung Cancer Screening 06/29/20232021, 04/06/2022, 04/06/2022 [id number]-60 Vaccine (1 - 2023- season) 2024 [facility]-Influenza Vaccine (Seaso n Ended) 2025 08/10/2022 [facility]-RSV Vaccine: 60+ Years o r (1 - 1-dose 75+ series) 2033 [facility]-Obesity Intervention Completed 024, 07/23/2024, 12/19/2023 HPV Vaccines Aged Out No longer eligi ble based on patient's age to complete this topic [facility]-HIB Vaccines Aged Out No longer e ligible based on patient's age to complete this topic [facility]-Hepatitis A Vaccines Aged Out No longer eligible based on patient's age to complete this topic [facility]-IPV Vaccines Aged Out No longer e ligible based on patient's age to complete this topic [facility]-Rotavirus Vaccines Aged Out No lo nger eligible based on patient's age to complete this topic Procedures Procedure Name Priority Date/Time Associated Diagnosis Comments CT CHEST WO IV CONTRAST Routine 06/29/2022 3:19 PM EDT Lung nodule from Last 3 Months or Most Recently Relevant to Health Maintenance Results * CT Chest wo IV Contrast (06/29/2022 3:19 PM EDT) Anatomical Region Laterality Modality Chest Computed Tomogra phy Impressions 06/29/2022 4:35 PM EDT Multiple bilateral pulmonary nodules, with the 2 largest in the bilateral lung apices with associated pulmonary fibrosis. Outside hospital PET/CT demonstrated radiotracer uptake in these 4 largest nodules. Left upper lobe nodule is very concerning for malignancy. Alternatively this appearance can be seen with pneumoconiosis. Recommend soft tissue sampling of left upper lobe nodule for further characterization. A few low-attenuation lesions in the partially imaged liver. Consider further evaluation with right upper quadrant ultrasound. CRITICAL RESULT: No. COMMUNICATION: Per this written report. By electronically signing this report, I, the attending physician, attest that I have personally reviewed the images/data for the above examination(s) and agree with the final edited report. Dictated by Colby Horton MD on 06/29/2022 3:49 PM Signed by Aurelio Michele MD on 06/29/2022 4:35 PM Narrative 06/29/2022 4:35 PM EDT Exam/Procedure: CT CHEST WO IV CONTRAST ordered by DARYL KEE, [id number] CLINICAL INDICATION: Lung nodule, > 8mm TECHNIQUE: Multiple CT helical images were obtained from thoracic inlet through upper abdomen without administration of IV contrast. Total DLP (Dose-Length Product): 218.02 mGy.cm. Please note: The reported value represents the total of one or more individual components during the CT acquisition on this date and at this time, and as such, the same value may appear in more than one CT report depending on the interpreting/reporting physicians. COMPARISON: Outside hospital CT chest April 06, 2022 FINDINGS: Mediastinum and Pleura: No mediastinal or hilar adenopathy. Calcified subcarinal and bilateral hilar lymph nodes. No pleural or pericardial effusion. Lungs: Right apical 2.9 cm heterogeneous nodule (series 3 image 21) with surrounding architectural distortion. 2.6 x 1.1 cm oblong nodule in the left upper lobe (series 3 image 25), with surrounding fibrosis. 7 mm right lower lobe nodule (series 3 image 49). 1.2 cm left lower lobe nodule (series 3 image 33). These nodules are similar in appearance and size compared to the prior outside study in March 2022. Severe centrilobular emphysema. Upper Abdomen: 1.2 cm hypoattenuating lesion in the right hemiliver (series 4 image 368). 8mm left hemiliver hypoattenuating lesion (series 4 image 320). Calcified splenic granulomas. Musculoskeletal: Mild degenerative changes of the spine. No suspicious lytic or sclerotic lesions. Procedure Note Aurelio Michele MD - 06/29/2022 Exam/Procedure: CT CHEST WO IV CONTRAST ordered by DARYL KEE,[id number] CLINICAL INDICATION: Lung nodule, > 8mm TECHNIQUE: Multiple CT helical images were obtained from thoracic inlet through upperabdomen without administration of IV contrast. Total DLP (Dose-Length Product): 218.02 mGy.cm. Please note: The reportedvalue represents the total of one or more individual components during theCT acquisition on this date and at this time, and as such, the same valuemay appear in more than one CT report depending on theinterpreting/reporting physicians. COMPARISON: Outside hospital CT chest April 06, 2022 FINDINGS: Mediastinum and Pleura: No mediastinal or hilar adenopathy. Calcifiedsubcarinal and bilateral hilar lymph nodes. No pleural or pericardialeffusion. Lungs: Right apical 2.9 cm heterogeneous nodule (series 3 image 21) withsurrounding architectural distortion. 2.6 x 1.1 cm oblong nodule in theleft upper lobe (series 3 image 25), with surrounding fibrosis. 7 mm rightlower lobe nodule (series 3 image 49). 1.2 cm left lower lobe nodule(series 3 image 33). These nodules are similar in appearance and sizecompared to the prior outside study in March 2022. Severe centrilobularemphysema. Upper Abdomen: 1.2 cm hypoattenuating lesion in the right hemiliver(series 4 image 368). 8mm left hemiliver hypoattenuating lesion (series 4image 320). Calcified splenic granulomas. Musculoskeletal: Mild degenerative changes of the spine. No suspiciouslytic or sclerotic lesions. IMPRESSION: Multiple bilateral pulmonary nodules, with the 2 largest in the bilaterallung apices with associated pulmonary fibrosis. Outside hospital PET/CTdemonstrated radiotracer uptake in these 4 largest nodules. Left upperlobe nodule is very concerning for malignancy. Alternatively thisappearance can be seen with pneumoconiosis. Recommend soft tissue samplingof left upper lobe nodule for further characterization. A few low-attenuation lesions in the partially imaged liver. Considerfurther evaluation with right upper quadrant ultrasound. CRITICAL RESULT: No. COMMUNICATION: Per this written report. By electronically signing this report, I, the attending physician, attestthat I have personally reviewed the images/data for the aboveexamination(s) and agree with the final edited report. Dictated by Colby Horton MD on 06/29/2022 3:49 PM Signed by Aurelio Michele MD on 06/29/2022 4:35 PM us Daryl Kee MD IMG CT PROCEDURES Final Resul t from Last 3 Months or Most Recently Relevant to Health Maintenance Insurance [employer] Care Teams Director Compliance Relationship Specialty Start Date End Date Migue Montenegro MD [address] [place] [address] PCP - General 05/28/22 Daryl Kee MD [address] [place] [address] Consulting Physician Pulmonary Disease 06/14/22 Randy Frederick MD [address] [place] [address] Referring Physician 06/25/22
--- OUTSIDE RECORDS SUMMARY | 2025-04-02 09:59 | XMS_ITS | Encounter Summary ---
Author Organization [facility] Address [address] [place] [address] Care Team Providers Care Flagstone Layer Name Role Phone Migue Montenegro MD Primary Care Provider + [phone] Daryl Kee MD Unavailable [phone] Randy Frederick MD Unavailable [phone] Encounter Details Date Type Department Care Team (Late st Contact Info) Description 11/14/2023 Orders Only External Location [address] [place] [address] Provider, External Social History Tobacco Use Types Packs/Day Years Used Date Smoking Tobacco: Former Cigarettes 1 42 1 977 - 2018 Smokeless Tobacco: Never Alcohol Use Standard Drinks/Week [...] Procedure Name Priority Date/Time Associated Diagnosis Comments MAMMOGRAPHY OUTSIDE IMAGES UPLOAD 11/14/2023 1:57 PM EST documented in this encounter Results * Mammography Outside Images Upload (11/14/2023 1:57 PM EST) Anatomical Region Laterality Modality Mammography 11/14/2023 1:57 PM EST us External Provider IMG BI PROCEDURES Final Result documented in this encounter Visit Diagnoses Not on filedocumented in this encounter Additional Health Concerns Assessment Noted Time A fall risk assessment has been complete d for the patient 06/14/2022 1:35 PM EDT documented as of this encounter Care Teams Flagstone Layer Relationship Specialty Start Date End Date Migue Montenegro MD [address] [place] [address] PCP - General 05/28/22 Daryl Kee MD [address] [place] [address] Consulting Physician Pulmonary Disease 06/14/22 Randy Frederick MD [address] [facility] [address] [place] [address] Referring Physician 06/25/22 documented as of this encounter
--- OUTSIDE RECORDS SUMMARY | 2025-04-02 09:59 | XMS_ITS | Encounter Summary ---
Author Organization [facility] Address [address] [place] [id number] Care Team Providers Care Concrete Float Maker Name Role Phone Migue Montenegro MD Primary Care Provider [phone] Daryl Kee MD Unavailable [phone] Randy Frederick MD Unavailable [phone] Encounter Details Date Type Department Care Team (Late st Contact Info) Description 04/06/2022 Orders Only External Location [address] [place] [address] Migue Montenegro MD [address] [place] [address] Social History Tobacco Use Types Packs/Day Years Used Date Smoking Tobacco: Never Assessed Comments Unknown Sex and Gender Information Value Date Recorded Sex Assigned at Not on file Legal Sex Female 8:33 PM EDT Gender Identity Not on file Sexual Orientation Not on file documented as of this encounter Plan of Treatment Not on file documented as of this encounter Procedures Procedure Name Priority Date/Time Associated Diagnosis Comments CT CHEST LUNG CANCER SCREENING 04/06/2022 2:50 PM EDT documented in this encounter Results * CT Chest Lung Cancer Screening (04/06/2022 2:50 PM EDT) Anatomical Region Laterality Modality Chest Computed Tomogra phy 04/06/2022 2:50 PM EDT Migue Montenegro MD IMG CT PROCEDURES Final Resu lt documented in this encounter Visit Diagnoses Not on filedocumented in this encounter Care Teams Concrete Float Maker Relationship Specialty Start Date End Date Migue Montenegro MD [address] [facility] [place] [address] PCP - General 05/28/22 Daryl Kee MD [address] [place] [address] Consulting Physician Pulmonary Disease 06/14/22 Randy Frederick MD [address] [facility] [address] [place] [address] Referring Physician 06/25/22 documented as of this encounter
--- OUTSIDE RECORDS SUMMARY | 2025-04-02 09:59 | XMS_ITS | Encounter Summary ---
Author Organization [facility] Address [address] [place] [address] Care Team Providers Care Greenhouse Florist Name Role Phone Migue Montenegro MD Primary Care Provider + [phone] Daryl Kee MD Unavailable [phone] Randy Frederick MD Unavailable [phone] Encounter Details Date Type Department Care Team (Late st Contact Info) Description 08/09/2023 Orders Only External Location [address] [place] [address] Provider, External Social History Tobacco Use Types Packs/Day Years Used Date Smoking Tobacco: Former Cigarettes 1 42 1 97 - 2018 Smokeless Tobacco: Never Alcohol Use [...] Date/Time Associated Diagnosis Comments CT OUTSIDE IMAGES 08/09/2023 3:10 PM EDT documented in this encounter Results * CT OUTSIDE IMAGES (08/09/2023 3:10 PM EDT) Anatomical Region Laterality Modality Computed Tomogra phy 08/09/2023 3:10 PM EDT us External Provider IMG CT PROCEDURES Final Result documented in this encounter Visit Diagnoses Not on filedocumented in this encounter Additional Health Concerns Assessment Noted Time A fall risk assessment has been complete d for the patient 06/14/2022 1:35 PM EDT documented as of this encounter Care Teams Greenhouse Florist Relationship Specialty Start Date End Date Migue Montenegro MD [address] [place], [place] [id number] PCP - General 05/28/22 Daryl Kee MD [address] [place] [address] Consulting Physician Pulmonary Disease 06/14/22 Randy Frederick MD [address] [facility] [address] [place] [address] Referring Physician 06/25/22 documented as of this encounter
--- OUTSIDE RECORDS SUMMARY | 2025-04-02 09:59 | XMS_ITS | Encounter Summary ---
Author Organization [facility] Address [address] [place] [address] Care Team Providers Care Records Associate Name Role Phone Migue Montenegro MD Primary Care Provider + [phone] Daryl Kee MD Unavailable [phone] aRndy Frederick MD Unavailable [phone] Encounter Details Date Type Department Care Team (Late st Contact Info) Description 11/04/2023 Orders Only External Location [address] [place] [address] Provider, External Social History Tobacco Use Types [...] Associated Diagnosis Comments MAMMOGRAPHY OUTSIDE IMAGES UPLOAD 11/04/2023 3:54 PM EST documented in this encounter Results * Mammography Outside Images Upload (11/04/2023 3:54 PM EST) Anatomical Region Laterality Modality Mammography 11/04/2023 3:54 PM EST us External Provider IMG BI PROCEDURES Final Result documented in this encounter Visit Diagnoses Not on filedocumented in this encounter Additional Health Concerns Assessment Noted Time A fall risk assessment has been complete d for the patient 06/14/2022 1:35 PM EDT documented as of this encounter Care Teams Records Associate Relationship Specialty Start Date End Date Migue Montenegro MD [address] [place] [address] PCP - General 05/28/22 Daryl Kee MD [address] [place] [address] Consulting Physician Pulmonary Disease 06/14/22 Randy Frederick MD [address] [facility] [address] [place] [address] Referring Physician 06/25/22 documented as of this encounter
--- OUTSIDE RECORDS SUMMARY | 2025-04-02 09:59 | XMS_ITS | Encounter Summary ---
Author Organization [facility] Address [address] [place] [address] Care Team Providers Care Dominatrix Name Role Phone Migue Montenegro MD Primary Care Provider [phone] Daryl Kee MD Unavailable [phone] Randy Frederick MD Unavailable [phone] Encounter Details Date Type Department Care Team (Late st Contact Info) Description 05/03/2022 Orders Only External Location [address] [place] [address] Provider, External Social History Tobacco Use Types [...] Procedure Name Priority Date/Time Associated Diagnosis Comments PET OUTSIDE IMAGES 05/03/2022 11:37 AM EDT documented in this encounter Results * PET OUTSIDE IMAGES (05/03/2022 11:37 AM EDT) Anatomical Region Laterality Modality Nuclear Medicine 05/03/2022 11:3 7 AM EDT us External Provider IMG NM PROCEDURES Final Result documented in this encounter Visit Diagnoses Not on filedocumented in this encounter Care Teams Dominatrix Relationship Specialty Start Date End Date Migue Montenegro MD [address] [place] [address] PCP - General 05/28/22 Daryl Kee MD [address] [place] [address] Consulting Physician Pulmonary Disease 06/14/22 Randy Frederick MD [address] [place] [address] Referring Physician 06/25/22 documented as of this encounter
--- OUTSIDE RECORDS SUMMARY | 2025-04-02 09:59 | XMS_ITS | Encounter Summary ---
Author Organization [facility] Address [address] [place] [address] Care Team Providers Care Parole Supervisor Name Role Phone Migue Montenegro MD Primary Care Provider + [phone] Daryl Kee MD Unavailable [phone] Randy Frederick MD Unavailable [phone] Encounter Details Date Type Department Care Team (Late st Contact Info) Description 03/11/2024 Orders Only External Location [address] [place] [address] Provider, External Social History Tobacco Use Types [...] Procedure Name Priority Date/Time Associated Diagnosis Comments XR OUTSIDE IMAGES 03/11/2024 8:04 AM EDT documented in this encounter Results * XR OUTSIDE IMAGES (03/11/2024 8:04 AM EDT) Anatomical Region Laterality Modality Radiographic Mary ging 03/11/2024 8:04 AM EDT us External Provider IMG XR PROCEDURES Final Result documented in this encounter Visit Diagnoses Not on filedocumented in this encounter Additional Health Concerns Assessment Noted Time A fall risk assessment has been complete d for the patient 12/19/2023 11:47 AM EST A Body Mass Index follow-up plan has been documented for the patient 12/19/2023 1:53 PM EST documented as of this encounter Care Teams Parole Supervisor Relationship Specialty Start Date End Date Migue Montenegro MD [address] [place], [place] [id number] PCP - General 05/28/22 Daryl Kee MD [address] [place] [address] Consulting Physician Pulmonary Disease 06/14/22 Randy Frederick MD [address] [place] [address] Referring Physician 06/25/22 documented as of this encounter
--- OUTSIDE RECORDS SUMMARY | 2025-04-02 09:59 | XMS_ITS | Encounter Summary ---
Author Organization [facility] Address [address] [place] [address] Care Team Providers Care Maintenance Service Dispatcher Name Role Phone Migue Montenegro MD Primary Care Provider + [phone] Daryl Kee MD Unavailable [phone] Randy Frederick MD Unavailable [phone] Encounter Details Date Type Department Care Team (Late st Contact Info) Description 01/27/2024 Orders Only External Location [address] [place] [address] Provider, External Social History Tobacco Use Types [...] Date/Time Associated Diagnosis Comments XR OUTSIDE IMAGES 01/27/2024 4:29 PM EDT documented in this encounter Results * XR OUTSIDE IMAGES (01/27/2024 4:29 PM EDT) Anatomical Region Laterality Modality Radiographic Mary ging 01/27/2024 4:29 PM EDT us External Provider IMG XR PROCEDURES [...] documented as of this encounter Care Teams Maintenance Service Dispatcher Relationship Specialty Start Date End Date Migue Montenegro MD [address] [place], [place] [phone] PCP - General 05/28/22 Daryl Kee MD [address] [place] [address] Consulting Physician Pulmonary Disease 06/14/22 Randy Frederick MD [address] [place] [address] Referring Physician 06/25/22 documented as of this encounter
--- NOTE | 2025-04-02 11:00 | CT_ITS ---
FINAL REPORT TECHNIQUE: Thin section axial images were obtained from the lung apices through the upper abdomen without contrast. This study was performed with techniques to keep radiation doses as low as reasonably achievable (ALARA). Individualized dose reduction techniques using automated exposure control or adjustment of mA and/or kV according to the patient's size were employed. CLINICAL HISTORY: Lung nodule follow-up COMPARISON: 09/28/2024 FINDINGS: There is no mediastinal, hilar, or axillary lymphadenopathy. No pleural or pericardial effusion. Severe changes of emphysema are present. Bilateral upper lobe calcified areas of scarring are once again noted. There are new ground glass and airspace opacities present in the posterior left upper lobe. The ground glass opacity in the superior segment of the left lower lobe is stable, as is the left lower lobe irregular mass-like density. There are new ground glass and airspace infiltrates in the right upper lobe. Favor that these represent new bilateral areas of pneumonia. There are several small hypodense liver lesions, which are stable in appearance, and likely represent cysts. There is no acute osseous abnormality. Stable small right hypodense thyroid nodule. IMPRESSION: New bilateral upper lobe opacities, that most likely represent new focal areas of pneumonia. Severe changes of emphysema, with chronic areas of mass-like opacity once again noted. Recommend 2 to 3-month follow-up CT of the chest for further evaluation. Reviewed, Interpreted and Dictated by Martha Kearns MD Transcribed by Sabi Davis Authenticated and [facility]
== END 2025-04-02 23:59 | disposition home or self-care (01) ==
LOC: RT 09:56
PROVIDERS: PCP Family Medicine; Visit Provider Internal Medicine Pulmonary Disease
DX: J44.9 Chronic obstructive pulmonary disease, unspecified (principal); J43.9 Emphysema, unspecified; R91.8 Other nonspecific abnormal finding of lung field
CPT/HCPCS: 71250; 94010; 94618

== ENCOUNTER 2025-04-09 07:43 | Outpatient (CLI) | payer MEDICARE, SELFPAY ==
--- OUTSIDE RECORDS SUMMARY | 2025-04-09 07:45 | XMS_ITS | Encounter Summary ---
Author Organization [facility] Address [address] [place] [address] Care Team Providers Care Insect Control Inspector Name Role Phone Migue Montenegro MD Primary Care Provider + [phone] Daryl Kee MD Unavailable [phone] Randy Frederick MD Unavailable [phone] Encounter Details Date Type Department Care Team (Late st Contact Info) Description 03/26/2024 Orders Only External Location [address] [place] [address] Provider, External Social History Tobacco Use Types [...] documented as of this encounter Care Teams Insect Control Inspector Relationship Specialty Start Date End Date Migue Montenegro MD [address] [place] [address] PCP - General 05/28/22 Daryl Kee MD [address] [place] [address] Consulting Physician Pulmonary Disease 06/14/22 Randy Frederick MD [address] [place] [address] Referring Physician 06/25/22 documented as of this encounter
--- OUTSIDE RECORDS SUMMARY | 2025-04-09 07:45 | XMS_ITS | Clinical Summary ---
Author Organization [facility] Address [address] [place] [address] Care Team Providers Care Steward Racetrack Name Role Phone Migue Montenegro MD Primary Care Provider + [phone] Daryl Kee MD Unavailable [phone] Randy Frederick MD Unavailable [phone] Allergies No known active allergies Medications fish oil ([place]-3) 500 MG capsule Take 600 mg by [...] Density Scan 1960 [facility]-Hepatitis C Screening 1960 [facility]-Medicare Annual Wellness (AWV) 1960 [facility]-/Child/Adol SDOH Screenings 1960 [facility]- SDOH Screenings 02/10/1976 [...] 06/14/2022 [facility]-Lung Cancer Screening 06/29/20232021, 04/06/2022, 04/06/2022 [id number] Vaccine (1 - 2023- season) 2024 [facility]-Influenza [...] WO IV CONTRAST ordered by DARYL KEE, [id number] CLINICAL INDICATION: Lung nodule, > 8mm TECHNIQUE: [...] CHEST WO IV CONTRAST ordered by DARYL KEE,[id number] CLINICAL INDICATION: Lung nodule, > 8mm TECHNIQUE: [...] Health Maintenance Insurance [employer] Care Teams Steward Racetrack Relationship Specialty Start Date End Date Migue Montenegro MD [address] [place] [address] PCP - General 05/28/22 Daryl Kee MD [address] [place] [address] Consulting Physician Pulmonary Disease 06/14/22 Randy Frederick MD [address] [place] [address] Referring Physician 06/25/22
--- OUTSIDE RECORDS SUMMARY | 2025-04-09 07:45 | XMS_ITS | Encounter Summary ---
Author Organization [facility] Address [address] [place] [address] Care Team Providers Care Liquor Establishment Manager Name Role Phone Migue Montenegro MD Primary Care Provider + [phone] Daryl Kee MD Unavailable [phone] Randy Frederick MD Unavailable [phone] Encounter Details Date Type Department Care Team (Late st Contact Info) Description 08/09/2023 Orders Only External Location [address] [place] [address] Provider, External Social History Tobacco Use Types [...] documented as of this encounter Care Teams Liquor Establishment Manager Relationship Specialty Start Date End Date Migue Montenegro MD [address] [place], [place] [id number] PCP - General 05/28/22 Daryl Kee MD [address] [place] [address] Consulting Physician Pulmonary Disease 06/14/22 Randy Frederick MD [address] [facility] [address] [place] [address] Referring Physician 06/25/22 documented as of this encounter
--- OUTSIDE RECORDS SUMMARY | 2025-04-09 07:45 | XMS_ITS | Encounter Summary ---
Author Organization [facility] Address [address] [place] [address] Care Team Providers Care Dry Cell Assembly Supervisor Name Role Phone Migue Montenegro MD Primary Care Provider + [phone] Daryl Kee MD Unavailable [phone] Randy Frederick MD Unavailable [phone] Encounter Details Date Type Department Care Team (Late st Contact Info) Description 11/04/2023 Orders Only External Location [address] [place] [address] Provider, External Social History Tobacco Use Types [...] documented as of this encounter Care Teams Dry Cell Assembly Supervisor Relationship Specialty Start Date End Date Migue Montenegro MD [address] [place] [address] PCP - General 05/28/22 Daryl Kee MD [address] [place] [address] Consulting Physician Pulmonary Disease 06/14/22 Randy Frederick MD [address] [facility] [address] [place] [address] Referring Physician 06/25/22 documented as of this encounter
--- OUTSIDE RECORDS SUMMARY | 2025-04-09 07:45 | XMS_ITS | Encounter Summary ---
Author Organization [facility] Address [address] [place] [address] Care Team Providers Care Pharmaceutical Sales Specialist Name Role Phone Migue Montenegro MD Primary Care Provider + [phone] Daryl Kee MD Unavailable [phone] Randy Frederick MD Unavailable [phone] Encounter Details Date Type Department Care Team (Late st Contact Info) Description 03/11/2024 Orders Only External Location [address] [place] [address] Provider, External Social History Tobacco Use Types [...] documented as of this encounter Care Teams Pharmaceutical Sales Specialist Relationship Specialty Start Date End Date Migue Montenegro MD [address] [place], [place] [address] PCP - General 05/28/22 Daryl Kee MD [address] [place] [address] Consulting Physician Pulmonary Disease 06/14/22 Randy Frederick MD [address] [place] [address] Referring Physician 06/25/22 documented as of this encounter
--- OUTSIDE RECORDS SUMMARY | 2025-04-09 07:45 | XMS_ITS | Encounter Summary ---
Author Organization [facility] Address [address] [place] [address] Care Team Providers Care Speed Belt Sander Tender Name Role Phone Migue Montenegro MD Primary Care Provider [phone] Daryl Kee MD Unavailable [phone] Randy Frederick MD Unavailable [phone] Encounter Details Date Type Department Care Team (Late st Contact Info) Description 05/03/2022 Orders Only External Location [address] [place] [address] Provider, External Social History Tobacco Use Types [...] on filedocumented in this encounter Care Teams Speed Belt Sander Tender Relationship Specialty Start Date End Date Migue Montenegro MD [address] [place] [address] PCP - General 05/28/22 Daryl Kee MD [address] [place] [address] Consulting Physician Pulmonary Disease 06/14/22 Randy Frederick MD [address] [place] [address] Referring Physician 06/25/22 documented as of this encounter
--- OUTSIDE RECORDS SUMMARY | 2025-04-09 07:45 | XMS_ITS | Encounter Summary ---
Author Organization [facility] Address [address] [place] [address] Care Team Providers Care Electroplating Technician Name Role Phone Migue Montenegro MD Primary Care Provider + [phone] Daryl Kee MD Unavailable [phone] Randy Frederick MD Unavailable [phone] Encounter Details Date Type Department Care Team (Late st Contact Info) Description 01/27/2024 Orders Only External Location [address] [place] [address] Provider, External Social History Tobacco Use Types [...] documented as of this encounter Care Teams Electroplating Technician Relationship Specialty Start Date End Date Migue Montenegro MD [address] [place], [place] [address] PCP - General 05/28/22 Daryl Kee MD [address] [place] [address] Consulting Physician Pulmonary Disease 06/14/22 Randy Frederick MD [address] [place] [address] Referring Physician 06/25/22 documented as of this encounter
--- OUTSIDE RECORDS SUMMARY | 2025-04-09 07:45 | XMS_ITS | Encounter Summary ---
Author Organization [facility] Address [address] [place] [id number] Care Team Providers Care Lift Team Technician Name Role Phone Migue Montenegro MD Primary Care Provider [phone] Daryl Kee MD Unavailable [phone] Randy Frederick MD Unavailable [phone] Encounter Details Date Type Department Care Team (Late st Contact Info) Description 04/06/2022 Orders Only External Location [address] [place] [address] Migue Montenegro MD [address] [place] [address] Social History Tobacco Use Types Packs/Day Years [...] on filedocumented in this encounter Care Teams Lift Team Technician Relationship Specialty Start Date End Date Migue Montenegro MD [address] [facility] [place] [address] PCP - General 05/28/22 Daryl Kee MD [address] [place] [address] Consulting Physician Pulmonary Disease 06/14/22 Randy Frederick MD [address] [facility] [address] [place] [address] Referring Physician 06/25/22 documented as of this encounter
--- OUTSIDE RECORDS SUMMARY | 2025-04-09 07:45 | XMS_ITS | Encounter Summary ---
Author Organization [facility] Address [address] [place] [address] Care Team Providers Care Project Controls Scheduler Name Role Phone Migue Montenegro MD Primary Care Provider + [phone] Daryl Kee MD Unavailable [phone] Randy Frederick MD Unavailable [phone] Encounter Details Date Type Department Care Team (Late st Contact Info) Description 02/07/2023 Orders Only External Location [address] [place] [address] Provider, External Social History Tobacco Use Types [...] documented as of this encounter Care Teams Project Controls Scheduler Relationship Specialty Start Date End Date Migue Montenegro MD [address] [place], [place] [address] PCP - General 05/28/22 Daryl Kee MD [address] [place] [address] Consulting Physician Pulmonary Disease 06/14/22 Randy Frederick MD [address] [facility] [address] [place] [address] Referring Physician 06/25/22 documented as of this encounter
--- OUTSIDE RECORDS SUMMARY | 2025-04-09 07:45 | XMS_ITS | Encounter Summary ---
Author Organization [facility] Address [address] [place] [address] Care Team Providers Care Parking Lot Chauffeur Name Role Phone Migue Montenegro MD Primary Care Provider + [phone] Daryl Kee MD Unavailable [phone] Randy Frederick MD Unavailable [phone] Encounter Details Date Type Department Care Team (Late st Contact Info) Description 11/14/2023 Orders Only External Location [address] [place] [address] Provider, External Social History Tobacco Use Types [...] documented as of this encounter Care Teams Parking Lot Chauffeur Relationship Specialty Start Date End Date Migue Montenegro MD [address] [place] [address] PCP - General 05/28/22 Daryl Kee MD [address] [place] [address] Consulting Physician Pulmonary Disease 06/14/22 Randy Frederick MD [address] [facility] [address] [place] [address] Referring Physician 06/25/22 documented as of this encounter
[2025-04-09 07:47] LABS: Anti-Centromere B Antibodies ND; Anti-DNA (DS) Ab Qn ND; Anti-Jo-1 ND; Antichromatin Antibodies ND; Antiscleroderma-70 Antibodies ND; RNP Antibodies ND; Sjogren's Anti-SS-A ND; Sjogren's Anti-SS-B ND
[2025-04-09 08:42] LABS: C-Reactive Protein 57.5 mg/L (0-4)
[2025-04-12 12:22] LABS: Antinuclear Antibodies (ANA) Negative (Negative)
[2025-04-13 20:10] LABS: Anti-CCP Abs,IgG and IgA (RDL) < 20 Units (<20)
[2025-04-15 11:13] LABS: Rheumatoid Factor IGM < 7 U (<7)
== END 2025-04-09 23:59 | disposition home or self-care (01) ==
LOC: LAB 07:44
PROVIDERS: PCP Family Medicine; Visit Provider Internal Medicine Pulmonary Disease
DX: R06.09 Other forms of dyspnea (principal); J84.9 Interstitial pulmonary disease, unspecified
CPT/HCPCS: 36415; 86038; 86140; 86200; 86431; 87070; 87116; 87186; 87205; 87206

== ENCOUNTER 2025-04-16 09:33 | Outpatient (CLI) | payer MEDICARE, SELFPAY ==
[2025-04-16 18:15] LABS: Basophils % 0.8 % (0.1-2.0); Eosinophils # 0.2 Kmm3 (0.0-0.4); Eosinophils % 4.1 % (0.1-12.0); Hemoglobin 12.1 g/dL (12.2-16.2); Immature Granulocytes # 0.02 10^3uL; Immature Granulocytes % 0.4 %; Lymphocytes # 1.2 K/mm3 (0.7-4.5); Lymphocytes % 25.4 % (10-50); Mean Corpuscular HGB Conc 31.8 g/dL (31.8-35.4); Mean Corpuscular Hemoglobin 30.7 pg (27.0-31.2); Mean Corpuscular Volume 96.4 fl (81-99); Monocytes # 0.6 K/mm3 (0.1-1.0); Neutrophils # 2.8 K/mm3 (1.8-7.8); Neutrophils % 57.3 % (37.0-80.0); Nucleated Red Blood Cells # 0 10^3/uL; Nucleated Red Blood Cells % 0 %; Platelet Count 358 K/mm3 (142-424); Red Blood Count 3.94 M/mm3 (4.20-5.40); Red Cell Distribution Width 12.6 % (11.5-17.5); Red Cell Distribution Width-SD 44.6 fL; White Blood Count 4.9 K/mm3 (4.8-10.8)
[2025-04-16 19:25] LABS: Alanine Aminotransferase 14 U/L (12-78); Albumin Level 3.8 g/dl (3.5-5.0); Albumin/Globulin Ratio 1.3 (1.1-1.8); Alkaline Phosphatase 96 U/L (38-126); Anion Gap 14.4 mEq/L (5-15); Aspartate Amino Transferase 20 U/L (14-36); Bilirubin,Total 0.4 mg/dl (0.2-1.3); Blood Urea Nitrogen 14 mg/dl (7-17); Calcium 9.6 mg/dl (8.4-10.2); Carbon Dioxide 28 mmol/L (22.0-30.0); Chloride 100 mmol/L (98-107); Cholesterol 196 mg/dl (140-200); Estimated Glomerular Filt Rate 100 ml/min (>60); GFR (African American) 121 ML/MIN (>60); Glucose 94 mg/dl (74-100); HDL Cholesterol 39 mg/dl (40-60); Potassium 4.4 mmoL/L (3.5-5.1); Sodium 138 mmol/L (136-145); Total Protein,Serum 6.8 g/dl (6.3-8.2); Triglycerides 107 mg/dl (30-150); VLDL Cholesterol 21 mg/dL (0-40)
[2025-04-16 19:43] LABS: 25-OH Vitamin D, Total 65.1 ng/mL (30-100)
--- OUTSIDE RECORDS SUMMARY | 2025-04-19 09:49 | XMS_ITS | Encounter Summary ---
Author Organization [facility] Address [address] [place] [address] Care Team Providers Care Cylinder Grinder Name Role Phone Migue Montenegro MD Primary Care Provider + [phone] Daryl Kee MD Unavailable [phone] Randy Frederick MD Unavailable [phone] Encounter Details Date Type Department Care Team (Late st Contact Info) Description 08/09/2023 Orders Only External Location [address] [place] [address] Provider, External Social History Tobacco Use Types [...] documented as of this encounter Care Teams Cylinder Grinder Relationship Specialty Start Date End Date Migue Montenegro MD [address] [place], [place] [address] PCP - General 05/28/22 Daryl Kee MD [address] [place] [address] Consulting Physician Pulmonary Disease 06/14/22 Randy Frederick MD 12[address] [facility] [address] [place] [address] Referring Physician 06/25/22 documented as of this encounter
--- OUTSIDE RECORDS SUMMARY | 2025-04-19 09:49 | XMS_ITS | Encounter Summary ---
Author Organization [facility] Address [address] [place] [address] Care Team Providers Care Marina Dry Dock Manager Name Role Phone Migue Montenegro MD Primary Care Provider + [phone] Daryl Kee MD Unavailable [phone] Randy Frederick MD Unavailable [phone] Encounter Details Date Type Department Care Team (Late st Contact Info) Description 11/14/2023 Orders Only External Location [address] [place] [address] Provider, External Social History Tobacco Use Types [...] documented as of this encounter Care Teams Marina Dry Dock Manager Relationship Specialty Start Date End Date Migue Montenegro MD [address] [place] [address] PCP - General 05/28/22 Daryl Kee MD [address] [place] [address] Consulting Physician Pulmonary Disease 06/14/22 Randy Frederick MD [address] [facility] [address] [place] [address] Referring Physician 06/25/22 documented as of this encounter
--- OUTSIDE RECORDS SUMMARY | 2025-04-19 09:49 | XMS_ITS | Encounter Summary ---
Author Organization [facility] Address [address] [place] [address] Care Team Providers Care Degreaser Operator Name Role Phone Migue Montenegro MD Primary Care Provider + [phone] Daryl Kee MD Unavailable [phone] Randy Frederick MD Unavailable [phone] Encounter Details Date Type Department Care Team (Late st Contact Info) Description 03/11/2024 Orders Only External Location [address] [place] [address] Provider, External Social History Tobacco Use Types [...] documented as of this encounter Care Teams Degreaser Operator Relationship Specialty Start Date End Date Migue Montenegro MD [address] [place], [place] [address] PCP - General 05/28/22 Daryl Kee MD [address] [place] [address] Consulting Physician Pulmonary Disease 06/14/22 Randy Frederick MD [address] [place] [address] Referring Physician 06/25/22 documented as of this encounter
--- OUTSIDE RECORDS SUMMARY | 2025-04-19 09:49 | XMS_ITS | Encounter Summary ---
Author Organization [facility] Address [address] [place] [address] Care Team Providers Care Gambling Monitor Name Role Phone Migue Montenegro MD Primary Care Provider + [phone] Daryl Kee MD Unavailable [phone] Randy Frederick MD Unavailable [phone] Encounter Details Date Type Department Care Team (Late st Contact Info) Description 01/27/2024 Orders Only External Location [address] [place] [address] Provider, External Social History Tobacco Use Types [...] documented as of this encounter Care Teams Gambling Monitor Relationship Specialty Start Date End Date Migue Montenegro MD [address] [place], [place] [address] PCP - General 05/28/22 Daryl Kee MD [address] [place] [address] Consulting Physician Pulmonary Disease 06/14/22 Randy Frederick MD [address] [place] [address] Referring Physician 06/25/22 documented as of this encounter
--- OUTSIDE RECORDS SUMMARY | 2025-04-19 09:49 | XMS_ITS | Encounter Summary ---
Author Organization [facility] Address [address] [place] [address] Care Team Providers Care Java Designer Name Role Phone Migue Montenegro MD Primary Care Provider + [phone] Daryl Kee MD Unavailable [phone] Randy Frederick MD Unavailable [phone] Encounter Details Date Type Department Care Team (Late st Contact Info) Description 02/07/2023 Orders Only External Location [address] [place] [address] Provider, External Social History Tobacco Use Types [...] documented as of this encounter Care Teams Java Designer Relationship Specialty Start Date End Date Migue Montenegro MD [address] [place], [place] [address] PCP - General 05/28/22 Daryl Kee MD [address] [place] [address] Consulting Physician Pulmonary Disease 06/14/22 Randy Frederick MD 12[address] [facility] [address] [place] [address] Referring Physician 06/25/22 documented as of this encounter
--- OUTSIDE RECORDS SUMMARY | 2025-04-19 09:49 | XMS_ITS | Encounter Summary ---
Author Organization [facility] Address [address] [place] [id number] Care Team Providers Care Non Categorical Preschool Teacher Name Role Phone Migue Montenegro MD Primary Care Provider [phone] Daryl Kee MD Unavailable [phone] Randy Frederick MD Unavailable [phone] Encounter Details Date Type Department Care Team (Late st Contact Info) Description 04/06/2022 Orders Only External Location [address] [place] [address] Migue Montenegro MD [address] [place] [address] Social History Tobacco Use Types Packs/Day Years [...] on filedocumented in this encounter Care Teams Non Categorical Preschool Teacher Relationship Specialty Start Date End Date Migue Montenegro MD [address] [facility] [place] [address] PCP - General 05/28/22 Daryl Kee MD [address] [place] [address] Consulting Physician Pulmonary Disease 06/14/22 Randy Frederick MD [address] [facility] [address] [place] [address] Referring Physician 06/25/22 documented as of this encounter
--- OUTSIDE RECORDS SUMMARY | 2025-04-19 09:49 | XMS_ITS | Encounter Summary ---
Author Organization [facility] Address [address] [place] [address] Care Team Providers Care Food And Nutrition Services Supervisor Name Role Phone Migue Montenegro MD Primary Care Provider + [phone] Daryl Kee MD Unavailable [phone] Randy Frederick MD Unavailable [phone] Encounter Details Date Type Department Care Team (Late st Contact Info) Description 11/04/2023 Orders Only External Location [address] [place] [address] Provider, External Social History Tobacco Use Types [...] documented as of this encounter Care Teams Food And Nutrition Services Supervisor Relationship Specialty Start Date End Date Migue Montenegro MD [address] [place] [address] PCP - General 05/28/22 Daryl Kee MD [address] [place] [address] Consulting Physician Pulmonary Disease 06/14/22 Randy Frederick MD 12[address] [facility] [address] [place] [address] Referring Physician 06/25/22 documented as of this encounter
--- OUTSIDE RECORDS SUMMARY | 2025-04-19 09:49 | XMS_ITS | Encounter Summary ---
Author Organization [facility] Address [address] [place] [address] Care Team Providers Care Mast Maker Name Role Phone Migue Montenegro MD Primary Care Provider [phone] Daryl Kee MD Unavailable [phone] Randy Frederick MD Unavailable [phone] Encounter Details Date Type Department Care Team (Late st Contact Info) Description 05/03/2022 Orders Only External Location [address] [place] [address] Provider, External Social History Tobacco Use Types [...] on filedocumented in this encounter Care Teams Mast Maker Relationship Specialty Start Date End Date Migue Montenegro MD [address] [place] [address] PCP - General 05/28/22 Daryl Kee MD [address] [place] [address] Consulting Physician Pulmonary Disease 06/14/22 Randy Frederick MD [address] [place] [address] Referring Physician 06/25/22 documented as of this encounter
--- OUTSIDE RECORDS SUMMARY | 2025-04-19 09:49 | XMS_ITS ---
Laboratory report Created on: April 17, 2025 BLADIMIR MATOS : 1960 Sex: Female Author Organization Unknown PROBLEMS Problems List Code Description RESULTS Laboratory Orders Date Order Code Test 2025-04-09 [id number] ANTI-CCP AB, IGG + IGA (RDL) 2025-04-09 [id number] RF, IGM BY EIA ( RDL) 2025-04-09 [id number] ANTINUCLEAR AB M ULTIPLEX RFX 9 Laboratory Results Date LOINC Test Value Unit Reference Range Interpre tation 2025-04-09 [id number] ANTI-CCP AB, IGG + IGA (RDL) <20 UNITS <20 2025-04-09 [id number] RF, IGM BY EIA (RDL) <7 U <7 2025-04-09 [id number] POLA DIRECT N NEGATIVE
--- OUTSIDE RECORDS SUMMARY | 2025-04-19 09:49 | XMS_ITS | Clinical Summary ---
Author Organization [facility] Address [address] [place] [address] Care Team Providers Care Cuff Setter Name Role Phone Migue Montenegro MD Primary Care Provider + [phone] Daryl Kee MD Unavailable [phone] Randy Frederick MD Unavailable [phone] Allergies No known active allergies Medications fish oil ([place]-3) 500 MG capsule Take 600 mg by [...] Density Scan 1960 [facility]-Hepatitis C Screening 1960 [facility]-Medicare Annual Wellness (AWV) 1960 [facility]-/Child/Adol SDOH Screenings [...] 06/14/2022 [facility]-Lung Cancer Screening 06/29/20232021, 04/06/2022, 04/06/2022 [id number] Vaccine (1 - 2023- season) 2024 [facility]-Influenza [...] WO IV CONTRAST ordered by DARYL KEE, [id number] CLINICAL INDICATION: Lung nodule, > 8mm TECHNIQUE: [...] CHEST WO IV CONTRAST ordered by DARYL KEE,[id number] CLINICAL INDICATION: Lung nodule, > 8mm TECHNIQUE: [...] Health Maintenance Insurance [employer] Care Teams Cuff Setter Relationship Specialty Start Date End Date Migue Montenegro MD [address] [place] [address] PCP - General 05/28/22 Daryl Kee MD [address] [place] [address] Consulting Physician Pulmonary Disease 06/14/22 Randy Frederick MD [address] [place] [address] Referring Physician 06/25/22
--- OUTSIDE RECORDS SUMMARY | 2025-04-19 09:49 | XMS_ITS | Encounter Summary ---
Author Organization [facility] Address [address] [place] [address] Care Team Providers Care Manager Hotel Name Role Phone Migue Montenegro MD Primary Care Provider + [phone] Daryl Kee MD Unavailable [phone] Randy Frederick MD Unavailable [phone] Encounter Details Date Type Department Care Team (Late st Contact Info) Description 03/26/2024 Orders Only External Location [address] [place] [address] Provider, External Social History Tobacco Use Types [...] documented as of this encounter Care Teams Manager Hotel Relationship Specialty Start Date End Date Migue Montenegro MD [address] [place] [address] PCP - General 05/28/22 Daryl Kee MD [address] [place] [address] Consulting Physician Pulmonary Disease 06/14/22 Randy Frederick MD [address] [place] [address] Referring Physician 06/25/22 documented as of this encounter
== END 2025-04-16 23:59 | disposition home or self-care (01) ==
LOC: LAB.DROPOF 04-19 09:34
PROVIDERS: PCP Family Medicine; Visit Provider Family Medicine
DX: J44.9 Chronic obstructive pulmonary disease, unspecified (principal); I10 Essential (primary) hypertension
CPT/HCPCS: 80053; 80061; 82306; 85025

== ENCOUNTER 2025-04-26 09:23 | Day surgery (SDC) | payer MEDICARE, SELFPAY ==
[2025-04-21 10:50] VITALS: BMI 29.7
[2025-04-26 10:07] VITALS: BP 133/60; PULSE 97; RESP 17; TEMP 36.1; O2SAT 92
--- NOTE | 2025-04-26 10:37 | P.PNANES_ITS ---
[facility] Disclaimer: The information contained in this section may have been updated after the patient was seen, as this information can be updated by other users. Medical History Pneumonia Breast cancer screening by mammogram O2 dependent COPD mixed type Pulmonary emphysema Dyspnea on exertion Mediastinal lymphadenopathy Hilar lymphadenopathy Lung nodule COPD (chronic obstructive pulmonary disease) Surgical History History of colonoscopy History of lung biopsy No significant past surgical history Family History Other Cancer Coronary artery disease Diabetes Heart attack Hypertension Stroke Social History Smoking Status: Former smoker alcohol intake: never substance use type: denies use current occupational status: employed Travel in the last 8 weeks?: None Have you lived/traveled outside [place] in past 30 days?: No Contact w/someone who lives/traveled outside US past 30 days?: No Exposure to someone with infectious disease in past 14 days?: No Do you have a fever (greater than 100.4 F or 38 C)?: No Have you tested positive for COVID-19?: No Exposed to someone with COVID-19 in past 14 days?: No Do you have a sore throat?: No Do you have a cough?: No Do you have any weakness?: No Do you have any diarrhea?: No Are you experiencing any unusual bleeding?: No Do you have any muscle aches/pain?: No Do you have any abdominal pain?: No Are you experiencing loss of taste or smell?: No [facility] Anesthesia Checklist Patient Identification Patient Identification: Arm Band Structural Data Admitted From: Home Planned Operative Procedure/s: Colonoscopy Consent for Planned Operative Procedure(s) Verified: Yes Verified Documents: Surgical Consent and History and Physical NPO Status Verified Time NPO: 06:00 (finished prep) Additional verifications Anesthesia Reactions: No Airway Assessment Mallampati Score:: Class II C-Spine Mobility Assessed: Yes TMJ Mobility Assessed: Yes Dentition: Edentulous Neurological Assessment Level of Consciousness: Awake, Alert and Appropriate Anesthesia Plan Anesthesia Risk discussed: Yes Anesthesia Plan: Verified ASA Class: III Anesthesia Type: MAC
--- NOTE | 2025-04-26 11:02 | EXP.HP ---
History of Present Illness *Admission Date: 04/26/25 *Reason for visit:: Personal history of adenomatous colon polyps with prior positive Cologuard *History of present illness: Mrs. Kedar Rodrigues is a 65-year-old female who is here for surveillance colonoscopy secondary to right sided multiple adenomatous polyps and prior positive Cologuard. The examination is deemed medically necessary for surveillance colonoscopy. The patient has been seen, interviewed and examined prior to the procedure by both myself and the anesthesia provider. [facility] Disclaimer: The information contained in this section may have been updated after the patient was seen, as this information can be updated by other users. Medical History (Updated 04/26/25 @ 11:03 by Aleksander Velázquez II, MD) Pneumonia Breast cancer screening by mammogram O2 dependent COPD mixed type Pulmonary emphysema Dyspnea on exertion Mediastinal lymphadenopathy Hilar lymphadenopathy Lung nodule COPD (chronic obstructive pulmonary disease) Surgical History History of colonoscopy History of lung biopsy No significant past surgical history Family History Other Cancer Coronary artery disease Diabetes Heart attack Hypertension Stroke Social History Smoking Status: Former smoker alcohol intake: never substance use type: denies use current occupational status: employed Travel in the last 8 weeks?: None Have you lived/traveled outside US in past 30 days?: No Contact w/someone who lives/traveled outside US past 30 days?: No Exposure to someone with infectious disease in past 14 days?: No Do you have a fever (greater than 100.4 F or 38 C)?: No Have you tested positive for COVID-19?: No Exposed to someone with COVID-19 in past 14 days?: No Do you have a sore throat?: No Do you have a cough?: No Do you have any weakness?: No Do you have any diarrhea?: No Are you experiencing any unusual bleeding?: No Do you have any muscle aches/pain?: No Do you have any abdominal pain?: No Are you experiencing loss of taste or smell?: No Other Medical History Have you received the Pneumonia Vaccine: Yes Review of Systems Review of Systems Review of systems (narrative): Negative *Cardiovascular Comments: Negative *Gastrointestinal Comments: Negative *Genitourinary Comments: Negative *Musculoskeletal Comments: Negative *Neurologic Comments: Negative Meds Home Medications and Allergies Home Medications ?Medication ?Instructions ?Recorded ?Confirmed ?Type cholecalciferol (vitamin D3) 125 125 mcg PO DAILY 03/21/22 04/26/25 History mcg (5,000 unit) capsule ipratropium 0.5 mg-albuterol 3 mg See Rx Instructions .Route 10/05/24 04/26/25 Rx (2.5 mg base)/3 mL nebulization .COMPLEX #270 mL soln lisinopril 5 mg tablet See Rx Instructions .Route 12/03/24 04/26/25 Rx .COMPLEX #90 tabs fluticasone fur. 100 mcg-umeclid 1 inh inhalation DAILY 04/08/25 04/26/25 History 62.5 mcg-vilant 25 mcg inhalat.powder (Trelegy Ellipta) sodium,potassium,mag sulfates 17.5 See Rx Instructions PO .COMPLEX 04/12/25 04/21/25 Rx gram-3.13 gram-1.6 gram oral soln #354 mL (Suprep Bowel Prep Kit) mecobalamin (vitamin B12) 1,000 1,000 mcg PO DAILY 04/16/25 04/26/25 History mcg chewable tablet albuterol sulfate 90 mcg/actuation 2 inh inhalation QID PRN shortness 04/19/25 04/26/25 Rx aerosol inhaler of breath or wheezing 90 days #8.5 grams New Prescriptions to Start Prescriptions: Allergies Allergy/AdvReac Type Severity Reaction Status Date / Time No Known Allergies Allergy Verified 04/26/25 10:06 Exam Data for Last 24 hours Vital signs and Labs for Last 24 Hours: Temp Pulse Resp BP Pulse Ox O2 Del Method 97 F L 97 H 17 133/60 92 L Room Air 04/26/25 10:07 04/26/25 10:07 04/26/25 10:07 04/26/25 10:04/26/25 10:07 04/26/25 10:07 *Routine HEENT Exam Head: Present normocephalic Eye: Present EOMI and PERRL ENT: Present mucous membranes moist *Routine Neck Exam Neck: Present supple *Routine Respiratory Exam Respiratory: Present CTA bilaterally *Routine Cardiovascular Exam Cardiovascular: Present RRR *Routine Abdominal Exam Abdominal: Present soft and normoactive bowel sounds; Absent tenderness *Routine Rectal Exam Rectal:: deferred *Routine Genitalia Exam Genitalia:: deferred *Routine Extremities Exam Extremities: Absent cyanosis, clubbing or edema *Routine Skin Exam Skin: Present warm; Absent rash *Routine Neurological Exam Neurological: Present alert and oriented X3 Assessment and Plan *Assessment and plan (1) Personal history of adenomatous and serrated colon polyps: Status: Acute Category: Medical Code(s): Z86.0101 - Personal history of adenomatous and serrated colon polyps (2) Tubular adenoma of colon: Status: Acute Category: Medical Code(s): D12.6 - Benign neoplasm of colon, unspecified (3) Positive colorectal cancer screening using Cologuard test: Problem Comment: Colonoscopy 12/03/23 - tubular adenoma; barium enema March 11, 2024 revealed no constricting or obstructing lesion Status: Acute Category: Medical Code(s): R19.5 - Other fecal abnormalities Plan A/P: 1. Personal history of adenomatous colon polyps is the preprocedural diagnosis. The patient will be anesthetized/sedated using MAC sedation. The patient has been seen and examined. Cardiac and lung assessment prior to the examination is stable. Proceed with planned surveillance colonoscopy.
--- NOTE | 2025-04-26 11:11 | HMH.PROCNOTE ---
[facility] Procedure Note Date: 04/26/25 Time: 11:29 Procedure Note:: Colonoscopy Procedure Report: Colonoscopy with cold snare polypectomy Endoscopist: Aleksander Velázquez II, MD Referring physician: Delisa Phan PA-C/Wilmer Kay MD Date of Procedure: April 26, 2025 Equipment: Olympus 190 variable stiffness pediatric colonoscope Sedation: MAC sedation Indication: Mrs. Kedar Rodrigues is a 65-year-old female who is here for follow-up screening/surveillance colonoscopy. The patient did have a positive Cologuard and had a colonoscopy in November 2023 (Bhavin Castano M.D.). At that time she had a profoundly spastic colon with lack of relaxation and bowel preparation that was moderate to poor. She had right colonic polyps that were tattooed and these were adenomas. It was felt that because of her preparation she should have repeat surveillance colonoscopy within 1 year. She reports no abdominal pain, weight loss, change in her bowel habits or rectal bleeding. She reports no family history of colon cancer. Procedure: Prior to the procedure, a history and physical exam was performed, and patient's medications and allergies were reviewed. The risks, benefits and alternatives of the sedation and procedure were discussed with the patient. All questions were answered and informed consent was obtained. The patient was brought to the procedure room. Patient identification and proposed procedure were verified by the physician and the nurse. The patient was placed in a left lateral decubitus position and the scope was passed under direct vision. Throughout the procedure, the patient's blood pressure, pulse, and oxygen saturations were monitored continuously. The colonoscopy was accomplished without difficulty. The patient tolerated the procedure well. Findings: On digital rectal examination there was normal rectal tone. There were no external hemorrhoids. The colonoscope was introduced through the anal canal to the rectum and advanced to the cecum. The ileocecal valve and appendiceal orifice were identified. The scope was advanced a short distance into the ileum which appeared grossly normal. The scope was then withdrawn into the colon. There were 6 colon polyps (ascending x 3 (3, 4 and 4 mm), descending x 2 (2 and 4 mm) and rectum x 1 (6 mm)). These were all removed via cold snare polypectomy. The remaining cecum, ascending, transverse, descending, sigmoid and rectum were grossly normal. There were no other mucosal abnormalities identified. Upon retroflexion within the rectum there were grade 1 internal hemorrhoids. The preparation was excellent throughout with [place] Preparation Score of 9. The cecal time was 12 minutes. Impression: 1. Diminutive colonic polyps x 6 Plan: I will follow-up the polyp histology and recommend repeat surveillance colonoscopy again in 3 to 5 years based upon the pathology.
[2025-04-26 11:33] VITALS: BP 83/49; PULSE 86; RESP 16; TEMP 36.5; O2SAT 97
[2025-04-26 11:43] VITALS: BP 105/51; PULSE 82; RESP 16; O2SAT 98
[2025-04-26 11:53] VITALS: BP 108/66; PULSE 88; RESP 18; O2SAT 99
[2025-04-26 11:58] VITALS: BP 103/67; PULSE 81; RESP 16; O2SAT 97
== END 2025-04-26 12:12 | disposition home or self-care (01) ==
PROVIDERS: PCP Family Medicine; Visit Provider Internal Medicine Gastroenterology
PROC: 0DJD8ZZ Inspection of Lower Intestinal Tract, Via Natural or Artificial Opening Endoscopic (ICD-10-PCS; CPT 45378; principal; 2025-04-26 11:00)
DX: D12.2 Benign neoplasm of ascending colon (principal); D12.4 Benign neoplasm of descending colon; D12.8 Benign neoplasm of rectum; J44.9 Chronic obstructive pulmonary disease, unspecified; Z87.891 Personal history of nicotine dependence; Z86.0101 Personal history of adenomatous and serrated colon polyps; Z79.899 Other long term (current) drug therapy
CPT/HCPCS: 45385; J2003; J2704

== ENCOUNTER 2025-07-14 12:52 | Outpatient (CLI) | payer MEDICARE, SELFPAY ==
--- OUTSIDE RECORDS SUMMARY | 2025-07-14 12:56 | XMS_ITS | Encounter Summary ---
Author Organization [facility] Address [address] [place] [address] Care Team Providers Care Auto Parts Clerk Name Role Phone Migue Montenegro MD Primary Care Provider + [phone] Daryl Kee MD Unavailable [phone] Randy Frederick MD Unavailable [phone] Encounter Details Date Type Department Care Team (Late st Contact Info) Description 11/14/2023 Orders Only External Location [address] [place] [address] Provider, External Social History Tobacco Use Types [...] documented as of this encounter Care Teams Auto Parts Clerk Relationship Specialty Start Date End Date Migue Montenegro MD [address] [place] [address] PCP - General 05/28/22 Daryl Kee MD [address] [place] [address] Consulting Physician Pulmonary Disease 06/14/22 Randy Frederick MD [address] [facility] [address] [place] [address] Referring Physician 06/25/22 documented as of this encounter
--- OUTSIDE RECORDS SUMMARY | 2025-07-14 12:56 | XMS_ITS | Encounter Summary ---
Author Organization [facility] Address [address] [place] [id number] Care Team Providers Care Chief Nursing Executive Name Role Phone Migue Montenegro MD Primary Care Provider [phone] Daryl Kee MD Unavailable [phone] Randy Frederick MD Unavailable [phone] Encounter Details Date Type Department Care Team (Late st Contact Info) Description 04/06/2022 Orders Only External Location [address] [place] [address] Migue Montenegro MD [address] [place] [address] Social History Tobacco Use Types Packs/Day Years [...] on filedocumented in this encounter Care Teams Chief Nursing Executive Relationship Specialty Start Date End Date Migue Montenegro MD [address] [facility] [place] [address] PCP - General 05/28/22 Daryl Kee MD [address] [place] [address] Consulting Physician Pulmonary Disease 06/14/22 Randy Frederick MD [address] [facility] [address] [place] [address] Referring Physician 06/25/22 documented as of this encounter
--- OUTSIDE RECORDS SUMMARY | 2025-07-14 12:56 | XMS_ITS | Encounter Summary ---
Author Organization [facility] Address [address] [place] [address] Care Team Providers Care Sales Enablement Manager Name Role Phone Migue Montenegro MD Primary Care Provider + [phone] Daryl Kee MD Unavailable [phone] Randy Frederick MD Unavailable [phone] Encounter Details Date Type Department Care Team (Late st Contact Info) Description 02/07/2023 Orders Only External Location [address] [place] [address] Provider, External Social History Tobacco Use Types [...] documented as of this encounter Care Teams Sales Enablement Manager Relationship Specialty Start Date End Date Migue Montenegro MD [address] [place], [place] [id number] PCP - General 05/28/22 Daryl Kee MD [address] [place] [address] Consulting Physician Pulmonary Disease 06/14/22 Randy Frederick MD [address] [facility] [address] [place] [address] Referring Physician 06/25/22 documented as of this encounter
--- OUTSIDE RECORDS SUMMARY | 2025-07-14 12:56 | XMS_ITS | Encounter Summary ---
Author Organization [facility] Address [address] [place] [address] Care Team Providers Care Computer Systems Software Engineer Name Role Phone Migue Montenegro MD Primary Care Provider + [phone] Daryl Kee MD Unavailable [phone] Randy Frederick MD Unavailable [phone] Encounter Details Date Type Department Care Team (Late st Contact Info) Description 08/09/2023 Orders Only External Location [address] [place] [address] Provider, External Social History Tobacco Use Types [...] documented as of this encounter Care Teams Computer Systems Software Engineer Relationship Specialty Start Date End Date Migue Montenegro MD [address] [place], [place] [id number] PCP - General 05/28/22 Daryl Kee MD [address] [place] [address] Consulting Physician Pulmonary Disease 06/14/22 Randy Frederick MD [address] [facility] [address] [place] [address] Referring Physician 06/25/22 documented as of this encounter
--- OUTSIDE RECORDS SUMMARY | 2025-07-14 12:56 | XMS_ITS | Encounter Summary ---
Author Organization [facility] Address [address] [place] [address] Care Team Providers Care Etl Lead Name Role Phone Migue Montenegro MD Primary Care Provider [phone] Daryl Kee MD Unavailable [phone] Randy Frederick MD Unavailable [phone] Encounter Details Date Type Department Care Team (Late st Contact Info) Description 05/03/2022 Orders Only External Location [address] [place] [address] Provider, External Social History Tobacco Use Types [...] on filedocumented in this encounter Care Teams Etl Lead Relationship Specialty Start Date End Date Migue Montenegro MD [address] [place] [address] PCP - General 05/28/22 Daryl Kee MD [address] [place] [address] Consulting Physician Pulmonary Disease 06/14/22 Randy Frederick MD [address] [place] [address] Referring Physician 06/25/22 documented as of this encounter
--- OUTSIDE RECORDS SUMMARY | 2025-07-14 12:56 | XMS_ITS | Encounter Summary ---
Author Organization [facility] Address [address] [place] [address] Care Team Providers Care Physical Education Professor Name Role Phone Migue Montenegro MD Primary Care Provider + [phone] Daryl Kee MD Unavailable [phone] Randy Frederick MD Unavailable [phone] Encounter Details Date Type Department Care Team (Late st Contact Info) Description 11/04/2023 Orders Only External Location [address] [place] [address] Provider, External Social History Tobacco Use Types [...] documented as of this encounter Care Teams Physical Education Professor Relationship Specialty Start Date End Date Migue Montenegro MD [address] [place] [address] PCP - General 05/28/22 Daryl Kee MD [address] [place] [address] Consulting Physician Pulmonary Disease 06/14/22 Randy Frederick MD [address] [facility] [address] [place] [address] Referring Physician 06/25/22 documented as of this encounter
--- OUTSIDE RECORDS SUMMARY | 2025-07-14 12:56 | XMS_ITS | Clinical Summary ---
Author Organization [facility] Address [address] [place] [address] Care Team Providers Care Clerk Manager Name Role Phone Migue Montenegro MD Primary Care Provider + [phone] Daryl Kee MD Unavailable [phone] Randy Frederick MD Unavailable [phone] Allergies No known active allergies Medications fish oil ([place]-3) 500 MG capsule Take 600 mg by [...] Health Maintenance Due Date Last Done Comments [facility]-Bone Density Scan 1958 [facility]-Hepatitis C Screening 1958 [facility]-Medicare Annual Wellness (AWV) 1958 [facility]-/Child/Adol SDOH Screenings 1958 [facility]-IDUNF-53 Vaccine (#1) 1963 [facility]- SDOH Screenings 02/10/1976 [facility]-Adult SDOH Screenings 02/10/1976 [facility]-DTaP,Tdap,and Td Vaccine s (1 - Tdap) 1977 CT Colonography 2003 Colonoscopy 2003 FIT-DNA 2003 FIT 2003 FOBT 2003 Sigmoidoscopy 2003 [facility]-Colorectal Cancer Screening 2003 [facility]-Breast Cancer Screening 02/10/2008 [facility]-Zoster Vaccines (1 of 2) 02/10/2008 [facility]-RSV Vaccine: 60+ Years o r (1 - Risk 60-74 years 1-dose series) 2018 [facility]-Pneumococcal Vaccine: 50 + Years (2 of 2 - PCV) 07/27/2022 07/27/2021 [facility]-Depression Screening 06/14/2023 06/14/2022 [facility]-Lung Cancer Screening 06/29/20232021, 04/06/2022, 04/06/2022 [facility]-Influenza Vaccine (#1) 2025 08/10/2022 [facility]-Obesity Intervention Completed 024, 07/23/2024, 12/19/2023 HPV [...] WO IV CONTRAST ordered by DARYL KEE, [id number] CLINICAL INDICATION: Lung nodule, > 8mm TECHNIQUE: [...] CHEST WO IV CONTRAST ordered by DARYL KEE,[id number] CLINICAL INDICATION: Lung nodule, > 8mm TECHNIQUE: [...] Health Maintenance Insurance [employer] Care Teams Clerk Manager Relationship Specialty Start Date End Date Migue Montenegro MD [address] [place] [address] PCP - General 05/28/22 Daryl Kee MD [address] [place] [address] Consulting Physician Pulmonary Disease 06/14/22 Randy Frederick MD [address] [place] [address] Referring Physician 06/25/22
--- OUTSIDE RECORDS SUMMARY | 2025-07-14 12:56 | XMS_ITS | Encounter Summary ---
Author Organization [facility] Address [address] [place] [address] Care Team Providers Care Small Package And Bundle Sorter Clerk Name Role Phone Migue Montenegro MD Primary Care Provider + [phone] Daryl Kee MD Unavailable [phone] Randy Frederick MD Unavailable [phone] Encounter Details Date Type Department Care Team (Late st Contact Info) Description 03/26/2024 Orders Only External Location [address] [place] [address] Provider, External Social History Tobacco Use Types [...] documented as of this encounter Care Teams Small Package And Bundle Sorter Clerk Relationship Specialty Start Date End Date Migue Montenegro MD [address] [place] [address] PCP - General 05/28/22 Daryl Kee MD [address] [place] [address] Consulting Physician Pulmonary Disease 06/14/22 Randy Frederick MD [address] [place] [address] Referring Physician 06/25/22 documented as of this encounter
--- OUTSIDE RECORDS SUMMARY | 2025-07-14 12:56 | XMS_ITS | Encounter Summary ---
Author Organization [facility] Address [address] [place] [address] Care Team Providers Care Hospitality Associate Name Role Phone Mgiue Montenegro MD Primary Care Provider + [phone] Daryl Kee MD Unavailable [phone] Randy Frederick MD Unavailable [phone] Encounter Details Date Type Department Care Team (Late st Contact Info) Description 01/27/2024 Orders Only External Location [address] [place] [address] Provider, External Social History Tobacco Use Types [...] documented as of this encounter Care Teams Hospitality Associate Relationship Specialty Start Date End Date Migue Montenegro MD [address] [place], [place] [address] PCP - General 05/28/22 Daryl Kee MD [address] [place] [address] Consulting Physician Pulmonary Disease 06/14/22 Randy Frederick MD [address] [place] [address] Referring Physician 06/25/22 documented as of this encounter
--- OUTSIDE RECORDS SUMMARY | 2025-07-14 12:56 | XMS_ITS | Encounter Summary ---
Author Organization [facility] Address [address] [place] [address] Care Team Providers Care Wildlife Protector Name Role Phone Migue Montenegro MD Primary Care Provider + [phone] Daryl Kee MD Unavailable [phone] Randy Frederick MD Unavailable [phone] Encounter Details Date Type Department Care Team (Late st Contact Info) Description 03/11/2024 Orders Only External Location [address] [place] [address] Provider, External Social History Tobacco Use Types [...] documented as of this encounter Care Teams Wildlife Protector Relationship Specialty Start Date End Date Migue Montenegro MD [address] [place], [place] [address] PCP - General 05/28/22 Daryl Kee MD [address] [place] [address] Consulting Physician Pulmonary Disease 06/14/22 Randy Frederick MD [address] [place] [address] Referring Physician 06/25/22 documented as of this encounter
--- NOTE | 2025-07-14 13:00 | CT_ITS ---
FINAL REPORT TECHNIQUE: Axial CT without IV contrast administration. This study was performed with techniques to keep radiation doses as low as reasonably achievable, (ALARA). Individualized dose reduction techniques using automated exposure control or adjustment of mA and/or kV according to the patient's size were employed. This study was performed with techniques to keep radiation doses as low as reasonably achievable, (ALARA). Individualized dose reduction techniques using automated exposure control or adjustment of mA and/or kV according to the patient''s size were employed. CLINICAL HISTORY: 3 month f/u COMPARISON: 04/02/2025 FINDINGS: There is mild increased opacity in the right upper lobe inferior lateral to a calcified granuloma in the right upper lobe measuring 3 cm, was 1.8 cm. This is favored to be infectious. The more superior adjacent opacity has improved with loss of cavitary component. There are increasing irregular opacities in the posterior left upper lobe. Note is made of emphysema and scar. There has been interval resolution in the right middle lobe infiltrate. There is stable subpleural masslike opacity of the left lower lobe, probably scarring No pleural or pericardial effusion is seen. No adenopathy or mass lesion is present. IMPRESSION: 1. Mixed response with overall worsening of pulmonary opacities, favor infectious. Consider pulmonary consultation if this has not been previously done. Reviewed, Interpreted and Dictated by Gia Trotter MD Transcribed by Ester Vegas Authenticated and [facility]
== END 2025-07-14 23:59 | disposition home or self-care (01) ==
PROVIDERS: PCP Family Medicine; Visit Provider Internal Medicine Pulmonary Disease
DX: R91.8 Other nonspecific abnormal finding of lung field (principal); R91.1 Solitary pulmonary nodule
CPT/HCPCS: 71250

== ENCOUNTER 2025-10-15 10:50 | Outpatient (CLI) | payer MEDICARE, SELFPAY ==
[2025-10-15 14:56] LABS: Hematocrit 39.7 % (37.0-47.0); Hemoglobin 13.1 g/dL (12.2-16.2); Immature Granulocytes % 0.6 %; Mean Corpuscular HGB Conc 33.0 g/dL (31.8-35.4); Mean Corpuscular Hemoglobin 30.3 pg (27.0-31.2); Mean Corpuscular Volume 91.9 fl (81-99); Nucleated Red Blood Cells % 0 %; Platelet Count 215 K/mm3 (142-424); Red Blood Count 4.32 M/mm3 (4.20-5.40); Red Cell Distribution Width-SD 42.5 fL; White Blood Count 3.2 K/mm3 (4.8-10.8)
[2025-10-15 15:16] LABS: Alanine Aminotransferase 20 U/L (12-78); Albumin Level 4.2 g/dl (3.5-5.0); Albumin/Globulin Ratio 1.4 (1.1-1.8); Alkaline Phosphatase 104 U/L (38-126); Anion Gap 12.5 mEq/L (5-15); Aspartate Amino Transferase 25 U/L (14-36); Bilirubin,Total 0.6 mg/dl (0.2-1.3); Blood Urea Nitrogen 10 mg/dl (7-17); Calcium 9.0 mg/dl (8.4-10.2); Carbon Dioxide 26 mmol/L (22.0-30.0); Chloride 102 mmol/L (98-107); Creatinine,Serum 0.70 mg/dl (0.52-1.04); Estimated Glomerular Filt Rate 83 ml/min (>60); GFR (African American) 101 ML/MIN (>60); Globulin 3.1 g/dL (1.3-3.2); Glucose 95 mg/dl (74-100); Potassium 4.5 mmoL/L (3.5-5.1); Sodium 136 mmol/L (136-145); Total Protein,Serum 7.3 g/dl (6.3-8.2)
[2025-10-15 15:31] LABS: 25-OH Vitamin D, Total 40.9 ng/mL (30-100)
[2025-10-15 15:58] LABS: Total Cells Counted 100
[2025-10-15 16:01] LABS: Poikilocytosis 1+; Polychromasia 1+
[2025-10-15 16:03] LABS: Vitamin B12 964 pg/mL (239-931)
--- OUTSIDE RECORDS SUMMARY | 2025-10-16 09:43 | XMS_ITS | Encounter Summary ---
Author Organization [facility] Address [address] [place] [id number] Care Team Providers Care Jig Boring Machine Set Up Operator Name Role Phone Migue Montenegro MD Primary Care Provider [phone] Daryl Kee MD Unavailable [phone] Randy Frederick MD Unavailable [phone] Encounter Details Date Type Department Care Team (Late st Contact Info) Description 04/06/2022 Orders Only External Location [address] [place] [address] Migue Montenegro MD [address] [place] [address] Social History Tobacco Use Types Packs/Day Years [...] on filedocumented in this encounter Care Teams Jig Boring Machine Set Up Operator Relationship Specialty Start Date End Date Migue Montenegro MD [address] [facility] [place] [address] PCP - General 05/28/22 Daryl Kee MD [address] [place] [address] Consulting Physician Pulmonary Disease 06/14/22 Randy Frederick MD [address] [facility] [address] [place] [address] Referring Physician 06/25/22 documented as of this encounter
--- OUTSIDE RECORDS SUMMARY | 2025-10-16 09:43 | XMS_ITS | Encounter Summary ---
Author Organization [facility] Address [address] [place] [address] Care Team Providers Care Shipmaster Name Role Phone Migue Montenegro MD Primary Care Provider + [phone] Daryl Kee MD Unavailable [phone] Randy Frederick MD Unavailable [phone] Encounter Details Date Type Department Care Team (Late st Contact Info) Description 01/27/2024 Orders Only External Location [address] [place] [address] Provider, External Social History Tobacco Use Types [...] documented as of this encounter Care Teams Shipmaster Relationship Specialty Start Date End Date Migue Montenegro MD [address] [place], [place] [phone] PCP - General 05/28/22 Daryl Kee MD [address] [place] [address] Consulting Physician Pulmonary Disease 06/14/22 Randy Frederick MD [address] [place] [address] Referring Physician 06/25/22 documented as of this encounter
--- OUTSIDE RECORDS SUMMARY | 2025-10-16 09:43 | XMS_ITS | Encounter Summary ---
Author Organization [facility] Address [address] [place] [address] Care Team Providers Care Director Physical Therapy Name Role Phone Migue Montenegro MD Primary Care Provider + [phone] Daryl Kee MD Unavailable [phone] Randy Frederick MD Unavailable [phone] Encounter Details Date Type Department Care Team (Late st Contact Info) Description 11/04/2023 Orders Only External Location [address] [place] [address] Provider, External Social History Tobacco Use Types [...] documented as of this encounter Care Teams Director Physical Therapy Relationship Specialty Start Date End Date Migue Montenegro MD [address] [place] [address] PCP - General 05/28/22 Daryl Kee MD [address] [place] [address] Consulting Physician Pulmonary Disease 06/14/22 Randy Frederick MD [address] [facility] [address] [place] [address] Referring Physician 06/25/22 documented as of this encounter
--- OUTSIDE RECORDS SUMMARY | 2025-10-16 09:43 | XMS_ITS | Encounter Summary ---
Author Organization Healthcare Address [address] [place] [address] Care Team Providers Care Miniature Set Constructor Name Role Phone Migue Montenegro MD Primary Care Provider + [phone] Daryl Kee MD Unavailable [phone] Randy Frederick MD Unavailable [phone] Encounter Details Date Type Department Care Team (Late st Contact Info) Description 08/09/2023 Orders Only External Location [address] [place] [address] Provider, External Social History Tobacco Use Types [...] documented as of this encounter Care Teams Miniature Set Constructor Relationship Specialty Start Date End Date Migue Montenegro MD [address] [place], [place] [id number] PCP - General 05/28/22 Daryl Kee MD [address] [place] [address] Consulting Physician Pulmonary Disease 06/14/22 Randy Frederick MD [address] [facility] [address] [place] [address] Referring Physician 06/25/22 documented as of this encounter
--- OUTSIDE RECORDS SUMMARY | 2025-10-16 09:43 | XMS_ITS | Encounter Summary ---
Author Organization Healthcare Address [address] [place] [address] Care Team Providers Care Funding Specialist Name Role Phone Migue Montenegro MD Primary Care Provider + [phone] Daryl Kee MD Unavailable [phone] Randy Frederick MD Unavailable [phone] Encounter Details Date Type Department Care Team (Late st Contact Info) Description 03/26/2024 Orders Only External Location [address] [place] [address] Provider, External Social History Tobacco Use Types [...] documented as of this encounter Care Teams Funding Specialist Relationship Specialty Start Date End Date Migue Montenegro MD [address] [place] [address] PCP - General 05/28/22 Daryl Kee MD [address] [place] [address] Consulting Physician Pulmonary Disease 06/14/22 Randy Frederick MD [address] [place] [address] Referring Physician 06/25/22 documented as of this encounter
--- OUTSIDE RECORDS SUMMARY | 2025-10-16 09:43 | XMS_ITS | Encounter Summary ---
Author Organization [facility] Address [address] [place] [address] Care Team Providers Care Household Refrigeration Mechanic Name Role Phone Migue Montenegro MD Primary Care Provider [phone] Daryl eKe MD Unavailable [phone] Randy Frederick MD Unavailable [phone] Encounter Details Date Type Department Care Team (Late st Contact Info) Description 05/03/2022 Orders Only External Location [address] [place] [address] Provider, External Social History Tobacco Use Types [...] on filedocumented in this encounter Care Teams Household Refrigeration Mechanic Relationship Specialty Start Date End Date Migue Montenegro MD [address] [place] [address] PCP - General 05/28/22 Daryl Kee MD [address] [place] [address] Consulting Physician Pulmonary Disease 06/14/22 Randy Frederick MD [address] [place] [address] Referring Physician 06/25/22 documented as of this encounter
--- OUTSIDE RECORDS SUMMARY | 2025-10-16 09:43 | XMS_ITS | Encounter Summary ---
Author Organization [facility] Address [address] [place] [address] Care Team Providers Care Bilingual Account Manager Name Role Phone Migue Montenegro MD Primary Care Provider + [phone] Daryl Kee MD Unavailable [phone] Randy Frederick MD Unavailable [phone] Encounter Details Date Type Department Care Team (Late st Contact Info) Description 03/11/2024 Orders Only External Location [address] [place] [address] Provider, External Social History Tobacco Use Types [...] documented as of this encounter Care Teams Bilingual Account Manager Relationship Specialty Start Date End Date Migue Montenegro MD [address] [place], [place] [id number] PCP - General 05/28/22 Daryl Kee MD [address] [place] [address] Consulting Physician Pulmonary Disease 06/14/22 Randy Frederick MD [address] [place] [address] Referring Physician 06/25/22 documented as of this encounter
--- OUTSIDE RECORDS SUMMARY | 2025-10-16 09:43 | XMS_ITS | Encounter Summary ---
Author Organization [facility] Address [address] [place] [address] Care Team Providers Care Wireless Cellular Technician Name Role Phone Migue Montenegro MD Primary Care Provider + [phone] Daryl Kee MD Unavailable [phone] Randy Frederick MD Unavailable [phone] Encounter Details Date Type Department Care Team (Late st Contact Info) Description 02/07/2023 Orders Only External Location [address] [place] [address] Provider, External Social History Tobacco Use Types [...] documented as of this encounter Care Teams Wireless Cellular Technician Relationship Specialty Start Date End Date Migue Montenegro MD [address] [place], [place] [id number] PCP - General 05/28/22 Daryl Kee MD [address] [place] [address] Consulting Physician Pulmonary Disease 06/14/22 Randy Frederick MD [address] [facility] [address] [place] [address] Referring Physician 06/25/22 documented as of this encounter
--- OUTSIDE RECORDS SUMMARY | 2025-10-16 09:43 | XMS_ITS | Encounter Summary ---
Author Organization [facility] Address [address] [place] [address] Care Team Providers Care Technician Terminal And Repeater Name Role Phone Migue Montenegro MD Primary Care Provider + [phone] Daryl Kee MD Unavailable [phone] Randy Frederick MD Unavailable [phone] Encounter Details Date Type Department Care Team (Late st Contact Info) Description 11/14/2023 Orders Only External Location [address] [place] [address] Provider, External Social History Tobacco Use Types [...] documented as of this encounter Care Teams Technician Terminal And Repeater Relationship Specialty Start Date End Date Migue Montenegro MD [address] [place] [address] PCP - General 05/28/22 Daryl Kee MD [address] [place] [address] Consulting Physician Pulmonary Disease 06/14/22 Randy Frederick MD [address] [facility] [address] [place] [address] Referring Physician 06/25/22 documented as of this encounter
--- OUTSIDE RECORDS SUMMARY | 2025-10-16 09:43 | XMS_ITS | Clinical Summary ---
Author Organization [facility] Address [address] [place] [address] Care Team Providers Care Medical Equipment Sales Name Role Phone Migue Montenegro MD Primary Care Provider + [phone] Daryl Kee MD Unavailable [phone] Randy Frederick MD Unavailable [phone] Allergies No known active allergies Medications fish oil (Plano-3) 500 MG capsule Take 600 mg by [...] Density Scan 1958 [facility]-Hepatitis C Screening 1958 [facility]-Medicare Annual Wellness (AWV) 1958 [facility]-/Child/Adol SDOH Screenings 1958 [id number] Vaccine (#1) 1958 [facility]- SDOH Screenings 02/10/1976 [facility]-Adult SDOH Screenings 02/10/1976 [facility]-DTaP,Tdap,and Td Vaccine s (1 - Tdap) 1977 CT Colonography 2003 Colonoscopy 2003 FIT-DNA 2003 FIT 2003 FOBT 2003 Sigmoidoscopy 2003 [facility]-Colorectal Cancer Screening 2003 [facility]-Breast Cancer Screening 02/10/2008 [facility]-RSV Vaccine: 60+ Years o r (1 - Risk 50-74 years 1-dose series) 02/10/2008 [facility]-Zoster Vaccines (1 of 2) 02/10/2008 [facility]-Pneumococcal Vaccine: 50 + Years (2 of 2 - PCV) 07/27/2022 07/27/2021 [facility]-Depression Screening 06/14/2023 06/14/2022 [facility]-Lung Cancer Screening 06/29/20232021, 04/06/2022, 04/06/2022 [facility]-Influenza Vaccine (#1) 2025 08/10/2022 [facility]-Obesity Intervention Completed 024, 07/23/2024, 12/19/2023 HPV Vaccines (No Doses Required) Completed [facility]-HIB Vaccines Aged Out No longer e [...] WO IV CONTRAST ordered by DARYL KEE, [id number] CLINICAL INDICATION: Lung nodule, > 8mm TECHNIQUE: [...] CHEST WO IV CONTRAST ordered by DARYL KEE,[id number] CLINICAL INDICATION: Lung nodule, > 8mm TECHNIQUE: [...] Health Maintenance Insurance [employer] Care Teams Medical Equipment Sales Relationship Specialty Start Date End Date Migue Montenegro MD [address] [place] [address] PCP - General 05/28/22 Daryl Kee MD [address] [place] [address] Consulting Physician Pulmonary Disease 06/14/22 Randy Frederick MD [address] [facility] [address] [place] [address] Referring Physician 06/25/22
== END 2025-10-15 23:59 | disposition home or self-care (01) ==
LOC: LAB.DROPOF 10-16 09:42
PROVIDERS: PCP Family Medicine; Visit Provider Family Medicine
DX: E55.9 Vitamin D deficiency, unspecified (principal); J43.2 Centrilobular emphysema; A31.0 Pulmonary mycobacterial infection; I10 Essential (primary) hypertension; E53.8 Deficiency of other specified B group vitamins; J44.9 Chronic obstructive pulmonary disease, unspecified
CPT/HCPCS: 80053; 82306; 82607; 85007; 85025